=== PATIENT | female | born 1950 | race Caucasian/White ===

== ENCOUNTER 2017-06-09 11:44 | Inpatient (IN) | payer MEDICARE, MEDICAID ==
[~2017-06-09] VITALS: Ht 180.3 cm; Wt 123.0 kg
[~2017-06-09 11:44] MED LIST: CLAR500T PO; HYDROCODONE-ACETAMIN 10-325 MG; MULT-1085 PO; NORCO10T PO
[2017-06-09 12:16] LABS: BASOPHILS % (AUTO) 0.2 % (0-1); EOSINOPHILS # (AUTO) 0.1 X10'3 (0-0.9); EOSINOPHILS % (AUTO) 0.9 % (0-6); HEMATOCRIT 39.8 % (35.0-45.0); HEMOGLOBIN 13.2 g/dl (12.0-16.0); LYMPHOCYTES # (AUTO) 1.4 X10'3 (1.1-4.8); LYMPHOCYTES % (AUTO) 15.3 % (21-51); MEAN CORPUSCULAR HEMOGLOBIN 27.8 PG (27.0-31.0); MEAN CORPUSCULAR HGB CONC 33.1 % (33.0-36.5); MEAN PLATELET VOLUME 9.5 FL (7.4-10.4); MONOCYTES # (AUTO) 0.7 X10'3 (0-0.9); MONOCYTES % (AUTO) 7.7 % (2-12); NEUTROPHILS # (AUTO) 6.9 X10'3 (1.8-7.7); NEUTROPHILS % (AUTO) 75.9 % (42-75); PLATELET COUNT 135 X10'3 (140-440); RED BLOOD COUNT 4.74 X10'6 (4.20-5.60); RED CELL DISTRIBUTION WIDTH 16.2 % (11.5-14.5); WHITE BLOOD COUNT 9.1 X10'3 (4.5-11.0)
[2017-06-09 12:27] LABS: INR 1.1 INR; PARTIAL THROMBOPLASTIN TIME 26 SECONDS (22-32); PROTHROMBIN TIME 11.1 SECONDS (9.0-12.0)
[2017-06-09 12:33] LABS: ALANINE AMINOTRANSFERASE 18 U/L (12-78); ALBUMIN 3.8 G/DL (3.4-5.0); ALKALINE PHOSPHATASE 61 IU/L (46-116); ANION GAP 11 (8-16); ASPARTATE AMINO TRANSFERASE 18 U/L (10-37); BILIRUBIN,TOTAL 0.8 MG/DL (0.1-1.0); BLOOD UREA NITROGEN 18 MG/DL (7-18); BUN/CREATININE RATIO 26.5 (6.6-38.0); CALCIUM 9.3 MG/DL (8.5-10.1); CHLORIDE 103 MMOL/L (99-107); CREATININE 0.68 MG/DL (0.40-0.90); GLUCOSE 106 MG/DL (70-104); POTASSIUM 3.7 MMOL/L (3.5-5.1); SODIUM 141 MMOL/L (135-145); TOTAL CARBON DIOXIDE 27.4 MMOL/L (24-32); TOTAL PROTEIN 7.6 G/DL (6.4-8.2); eGFR 86 ML/MIN
[2017-06-09] MEDS ORDERED: normal saline 1000ML IV soln IVB ONE (12:35)
[2017-06-09] MEDS ORDERED: verapamil 2.5 mg/ml inj IV ONE (12:35)
[2017-06-09] MEDS ORDERED: metoprolol tartrate 1mg/ml inj IV ONE (12:50)
[2017-06-09] MEDS: diltiazem-NS 100mg/100ml 100 ML IV SCH ×2 (14:11→22:00)
[2017-06-09] MEDS ORDERED: CLOT30CR TOP (15:22)
[2017-06-09] MEDS ORDERED: diltiazem-NS 100mg/100ml 100 ML IV SCH (15:40)
[2017-06-09] MEDS ORDERED: acetaminophen 325mg tablet PO PRN (15:40)
[2017-06-09] MEDS ORDERED: ondansetron/PF 4mg/2ml inj IV PRN (15:40)
[2017-06-09] MEDS ORDERED: magnesium hydroxide 30ml (MOM) UD suspension PO PRN (15:40)
[2017-06-09] MEDS ORDERED: mag hydrox/Alum hydrox/simeth 30ml oral suspension PO PRN (15:40)
[2017-06-09] MEDS: normal saline 1000ml 1,000 ML IV SCH (15:50)
[2017-06-09] MEDS: HYDROcodone/acetaminophen 10/325mg tab PO PRN (20:02)
[2017-06-09] MEDS ORDERED: enoxaparin 60mg/0.6ml syringe SUBCUT ONE (20:10)
[2017-06-09 21:00] VITALS: BP 159/131
[2017-06-09 23:00] VITALS: BP 126/107
[2017-06-10] VITALS (14 sets, daily range): BP systolic 113–160; BP diastolic 82–108
[2017-06-10] MEDS: normal saline 1000ml 1,000 ML IV SCH ×3 (01:40→16:05)
[2017-06-10] MEDS: HYDROcodone/acetaminophen 10/325mg tab PO PRN ×2 (05:10→16:20)
[2017-06-10 05:32] LABS: BASOPHILS % (AUTO) 0.2 % (0-1); EOSINOPHILS # (AUTO) 0.1 X10'3 (0-0.9); EOSINOPHILS % (AUTO) 2.2 % (0-6); HEMATOCRIT 36.8 % (35.0-45.0); HEMOGLOBIN 12.2 g/dl (12.0-16.0); LYMPHOCYTES # (AUTO) 1.4 X10'3 (1.1-4.8); LYMPHOCYTES % (AUTO) 23.7 % (21-51); MEAN CORPUSCULAR HEMOGLOBIN 27.7 PG (27.0-31.0); MEAN CORPUSCULAR HGB CONC 33.3 % (33.0-36.5); MEAN CORPUSCULAR VOLUME 83.3 FL (78-98); MEAN PLATELET VOLUME 9.4 FL (7.4-10.4); MONOCYTES # (AUTO) 0.6 X10'3 (0-0.9); MONOCYTES % (AUTO) 10.2 % (2-12); NEUTROPHILS # (AUTO) 3.9 X10'3 (1.8-7.7); NEUTROPHILS % (AUTO) 63.7 % (42-75); PLATELET COUNT 131 X10'3 (140-440); RED BLOOD COUNT 4.41 X10'6 (4.20-5.60); WHITE BLOOD COUNT 6.1 X10'3 (4.5-11.0)
[2017-06-10 06:29] LABS: ALBUMIN 3.3 G/DL (3.4-5.0); ANION GAP 10 (8-16); BLOOD UREA NITROGEN 18 MG/DL (7-18); BUN/CREATININE RATIO 31.6 (6.6-38.0); CALCIUM 8.8 MG/DL (8.5-10.1); CHLORIDE 104 MMOL/L (99-107); CREATININE 0.57 MG/DL (0.40-0.90); GLUCOSE 103 MG/DL (70-104); POTASSIUM 3.4 MMOL/L (3.5-5.1); SODIUM 141 MMOL/L (135-145); TOTAL CARBON DIOXIDE 26.9 MMOL/L (24-32); eGFR > 90 ML/MIN
[2017-06-10] MEDS: diltiazem-NS 100mg/100ml 100 ML IV SCH ×4 (08:48→22:24)
[2017-06-10] MEDS ORDERED: magnesium 2GM in 50ml NS 50 ML IV PRN (10:45)
[2017-06-10] MEDS ORDERED: potassium Cl 40MEQ/NS 500ml 500 ML IV PRN ×2 (10:45)
[2017-06-10] MEDS ORDERED: magnesium 4gm in 100ml NS 100 ML IV PRN (10:45)
[2017-06-10] MEDS ORDERED: magnesium Cl slow-release 64mg tablet PO PRN (10:45)
[2017-06-10] MEDS ORDERED: potassium Cl 20 mEq SR tablet PO PRN (10:45)
[2017-06-10] MEDS ORDERED: iohexol 300mg/ml 100ml inj. ONE (13:21)
[2017-06-10] MEDS: enoxaparin 60mg/0.6ml syringe SUBCUT SCH ×2 (13:49→20:00)
[2017-06-10] MEDS: diltiazem 30mg tablet PO SCH ×2 (14:39→20:23)
[2017-06-10] MEDS: potassium Cl 20 mEq SR tablet PO PRN ×2 (14:44→20:23)
[2017-06-11] VITALS (7 sets, daily range): BP systolic 114–140; BP diastolic 72–98
[2017-06-11] MEDS: HYDROcodone/acetaminophen 10/325mg tab PO PRN ×3 (00:41→17:13)
[2017-06-11] MEDS: diltiazem 30mg tablet PO SCH ×4 (02:12→20:23)
[2017-06-11] MEDS: normal saline 1000ml 1,000 ML IV SCH (02:13)
[2017-06-11 05:42] LABS: BASOPHILS % (AUTO) 0.4 % (0-1); EOSINOPHILS # (AUTO) 0.2 X10'3 (0-0.9); EOSINOPHILS % (AUTO) 3.3 % (0-6); HEMATOCRIT 36.4 % (35.0-45.0); HEMOGLOBIN 12.2 g/dl (12.0-16.0); LYMPHOCYTES # (AUTO) 1.3 X10'3 (1.1-4.8); LYMPHOCYTES % (AUTO) 22.2 % (21-51); MEAN CORPUSCULAR HEMOGLOBIN 27.8 PG (27.0-31.0); MEAN CORPUSCULAR HGB CONC 33.5 % (33.0-36.5); MEAN CORPUSCULAR VOLUME 82.9 FL (78-98); MEAN PLATELET VOLUME 9.1 FL (7.4-10.4); MONOCYTES # (AUTO) 0.6 X10'3 (0-0.9); MONOCYTES % (AUTO) 11.4 % (2-12); NEUTROPHILS # (AUTO) 3.6 X10'3 (1.8-7.7); NEUTROPHILS % (AUTO) 62.7 % (42-75); PLATELET COUNT 147 X10'3 (140-440); RED BLOOD COUNT 4.39 X10'6 (4.20-5.60); RED CELL DISTRIBUTION WIDTH 16.1 % (11.5-14.5); WHITE BLOOD COUNT 5.7 X10'3 (4.5-11.0)
[2017-06-11 05:46] LABS: ALBUMIN 3.3 G/DL (3.4-5.0); ANION GAP 9 (8-16); BLOOD UREA NITROGEN 20 MG/DL (7-18); BUN/CREATININE RATIO 35.1 (6.6-38.0); CHLORIDE 106 MMOL/L (99-107); CREATININE 0.57 MG/DL (0.40-0.90); GLUCOSE 105 MG/DL (70-104); MAGNESIUM 1.7 MG/DL (1.5-2.4); SODIUM 143 MMOL/L (135-145); TOTAL CARBON DIOXIDE 28.4 MMOL/L (24-32); eGFR > 90 ML/MIN
[2017-06-11] MEDS: enoxaparin 60mg/0.6ml syringe SUBCUT SCH ×2 (07:48→20:00)
[2017-06-11] MEDS ORDERED: diltiazem 30mg tablet PO ONE (09:55)
[2017-06-11] MEDS ORDERED: potassium Cl 20 mEq SR tablet PO SCH (10:25)
[2017-06-11] MEDS ORDERED: furosemide 20 MG/2 ML vial IV SCH (10:25)
[2017-06-11] MEDS ORDERED: furosemide 40mg/4ml inj ONE (10:43)
[2017-06-11] MEDS: potassium Cl 20 mEq SR tablet PO SCH ×2 (10:51→17:13)
[2017-06-11] MEDS ORDERED: ipratropium/albuterol 3ml nebule NEB PRN (11:05)
[2017-06-11] MEDS: ipratropium/albuterol 3ml nebule NEB SCH ×3 (14:49→23:32)
[2017-06-11] MEDS: furosemide 40mg/4ml inj IV SCH (20:22)
[2017-06-12] MEDS: diltiazem 30mg tablet PO SCH ×4 (01:49→20:46)
[2017-06-12] MEDS: HYDROcodone/acetaminophen 10/325mg tab PO PRN ×3 (01:50→20:47)
[2017-06-12 03:00] VITALS: BP 120/91
[2017-06-12] MEDS: ipratropium/albuterol 3ml nebule NEB SCH ×6 (03:16→23:00)
[2017-06-12 06:00] VITALS: BP 129/96
[2017-06-12 06:35] LABS: MAGNESIUM 1.6 MG/DL (1.5-2.4); POTASSIUM 3.4 MMOL/L (3.5-5.1)
[2017-06-12] MEDS: potassium Cl 20 mEq SR tablet PO PRN ×3 (07:19→20:51)
[2017-06-12] MEDS: potassium Cl 20 mEq SR tablet PO SCH ×2 (07:19→16:38)
[2017-06-12] MEDS: furosemide 40mg/4ml inj IV SCH ×2 (07:20→20:46)
[2017-06-12] MEDS: enoxaparin 60mg/0.6ml syringe SUBCUT SCH ×2 (08:00→20:00)
[2017-06-12 11:00] VITALS: BP 148/95
[2017-06-12 15:00] VITALS: BP 126/103
[2017-06-12 19:00] VITALS: BP 141/92
[2017-06-12 23:00] VITALS: BP 127/84
[2017-06-13] MEDS: diltiazem 30mg tablet PO SCH ×3 (02:00→14:48)
[2017-06-13 03:00] VITALS: BP 122/89
[2017-06-13] MEDS: ipratropium/albuterol 3ml nebule NEB SCH ×2 (03:00→07:00)
[2017-06-13 05:32] LABS: BASOPHILS % (AUTO) 0.3 % (0-1); EOSINOPHILS # (AUTO) 0.2 X10'3 (0-0.9); EOSINOPHILS % (AUTO) 3.3 % (0-6); HEMATOCRIT 36.6 % (35.0-45.0); HEMOGLOBIN 12.3 g/dl (12.0-16.0); LYMPHOCYTES # (AUTO) 1.3 X10'3 (1.1-4.8); LYMPHOCYTES % (AUTO) 21.6 % (21-51); MEAN CORPUSCULAR HEMOGLOBIN 27.9 PG (27.0-31.0); MEAN CORPUSCULAR HGB CONC 33.7 % (33.0-36.5); MEAN CORPUSCULAR VOLUME 82.7 FL (78-98); MEAN PLATELET VOLUME 8.4 FL (7.4-10.4); MONOCYTES # (AUTO) 0.6 X10'3 (0-0.9); MONOCYTES % (AUTO) 10.1 % (2-12); NEUTROPHILS # (AUTO) 3.9 X10'3 (1.8-7.7); NEUTROPHILS % (AUTO) 64.7 % (42-75); PLATELET COUNT 156 X10'3 (140-440); RED BLOOD COUNT 4.43 X10'6 (4.20-5.60); RED CELL DISTRIBUTION WIDTH 16.5 % (11.5-14.5)
[2017-06-13 05:45] LABS: ALBUMIN 3.4 G/DL (3.4-5.0); ANION GAP 8 (8-16); BLOOD UREA NITROGEN 13 MG/DL (7-18); BUN/CREATININE RATIO 21.7 (6.6-38.0); CALCIUM 9.4 MG/DL (8.5-10.1); CHLORIDE 100 MMOL/L (99-107); GLUCOSE 105 MG/DL (70-104); MAGNESIUM 1.7 MG/DL (1.5-2.4); POTASSIUM 3.8 MMOL/L (3.5-5.1); SODIUM 142 MMOL/L (135-145); TOTAL CARBON DIOXIDE 34.2 MMOL/L (24-32); eGFR > 90 ML/MIN
[2017-06-13 06:35] VITALS: BP 143/98
[2017-06-13] MEDS: HYDROcodone/acetaminophen 10/325mg tab PO PRN ×2 (07:01→17:28)
[2017-06-13] MEDS: enoxaparin 60mg/0.6ml syringe SUBCUT SCH (08:00)
[2017-06-13] MEDS: potassium Cl 20 mEq SR tablet PO SCH (09:19)
[2017-06-13] MEDS: furosemide 40mg/4ml inj IV SCH (09:20)
[2017-06-13 11:00] VITALS: BP 119/84
[2017-06-13 15:00] VITALS: BP 137/90
[2017-06-13] MEDS ORDERED: DILT30TA5 PO (17:56)
== END 2017-06-13 18:00 | disposition home or self-care (01) | DRG 871 ==
LOC: ER 11:45 → ED HOLD 15:40 → PCU 3S 20:30 → CMPBEDREQ 21:17
PROVIDERS: ADMIT Internal Medicine; ATTEND Legal Medicine
DX: A41.9 Sepsis, unspecified organism (principal); J96.02 Acute respiratory failure with hypercapnia; I50.23 Acute on chronic systolic (congestive) heart failure; I85.10 Secondary esophageal varices without bleeding; I48.91 Unspecified atrial fibrillation; I08.3 Combined rheumatic disorders of mitral, aortic and tricuspid valves; J45.901 Unspecified asthma with (acute) exacerbation; I11.0 Hypertensive heart disease with heart failure; K74.60 Unspecified cirrhosis of liver; B18.2 Chronic viral hepatitis C; B34.9 Viral infection, unspecified; I25.10 Atherosclerotic heart disease of native coronary artery without angina pectoris; M19.90 Unspecified osteoarthritis, unspecified site; F12.90 Cannabis use, unspecified, uncomplicated; Z60.2 Problems related to living alone; Z96.612 Presence of left artificial shoulder joint; Z96.653 Presence of artificial knee joint, bilateral; Z90.710 Acquired absence of both cervix and uterus; Z88.8 Allergy status to other drugs, medicaments and biological substances; Z87.891 Personal history of nicotine dependence; Z82.49 Family history of ischemic heart disease and other diseases of the circulatory system
CPT/HCPCS: 36415; 71045; 71260; 80048; 80053; 83735; 83880; 84132; 84484; 85025; 85610; 85730; 86738; 87070; 87502; 87503; 93005; 93306; 94640; 94760; 96361; 96374; 96375; 99291; A6212; J1650; J1940; J3490; J7030; Q9967

== ENCOUNTER 2017-07-03 10:36 | Emergency (ER) | payer MEDICARE, MEDICAID ==
[~2017-07-03] VITALS: Ht 180.3 cm; Wt 123.2 kg
[~2017-07-03 10:36] MED LIST changes: -CLAR500T PO; +CLOT30CR TOP; +DILT30TA5 PO; -HYDROCODONE-ACETAMIN 10-325 MG; -MULT-1085 PO
[2017-07-03 11:04] LABS: BASOPHILS % (AUTO) 0.4 % (0-1); EOSINOPHILS # (AUTO) 0.2 X10'3 (0-0.9); HEMATOCRIT 41.1 % (35.0-45.0); HEMOGLOBIN 13.7 g/dl (12.0-16.0); LYMPHOCYTES # (AUTO) 1.6 X10'3 (1.1-4.8); LYMPHOCYTES % (AUTO) 21.5 % (21-51); MEAN CORPUSCULAR HEMOGLOBIN 27.5 PG (27.0-31.0); MEAN CORPUSCULAR HGB CONC 33.3 % (33.0-36.5); MEAN CORPUSCULAR VOLUME 82.6 FL (78-98); MEAN PLATELET VOLUME 8.4 FL (7.4-10.4); MONOCYTES # (AUTO) 0.7 X10'3 (0-0.9); MONOCYTES % (AUTO) 9.2 % (2-12); NEUTROPHILS # (AUTO) 4.8 X10'3 (1.8-7.7); NEUTROPHILS % (AUTO) 65.9 % (42-75); PLATELET COUNT 159 X10'3 (140-440); RED BLOOD COUNT 4.97 X10'6 (4.20-5.60); RED CELL DISTRIBUTION WIDTH 16.6 % (11.5-14.5); WHITE BLOOD COUNT 7.4 X10'3 (4.5-11.0)
[2017-07-03 11:14] LABS: INR 1.3 INR; PARTIAL THROMBOPLASTIN TIME 41 SECONDS (22-32); PROTHROMBIN TIME 13.8 SECONDS (9.0-12.0)
[2017-07-03 11:19] LABS: ALANINE AMINOTRANSFERASE 20 U/L (12-78); ALBUMIN 3.8 G/DL (3.4-5.0); ALKALINE PHOSPHATASE 64 IU/L (46-116); ANION GAP 10 (8-16); ASPARTATE AMINO TRANSFERASE 16 U/L (10-37); BILIRUBIN,TOTAL 0.6 MG/DL (0.1-1.0); BLOOD UREA NITROGEN 25 MG/DL (7-18); BUN/CREATININE RATIO 31.3 (6.6-38.0); CALCIUM 9.2 MG/DL (8.5-10.1); CHLORIDE 102 MMOL/L (99-107); GLUCOSE 127 MG/DL (70-104); POTASSIUM 3.9 MMOL/L (3.5-5.1); SODIUM 140 MMOL/L (135-145); TOTAL CARBON DIOXIDE 28.4 MMOL/L (24-32); TOTAL PROTEIN 7.5 G/DL (6.4-8.2); eGFR 71 ML/MIN
[2017-07-03] MEDS ORDERED: diltiazem 30mg tablet PO ONE ×2 (17:10→18:25)
[2017-07-03] MEDS ORDERED: furosemide 20MG tablet PO ONE (17:30)
[2017-07-03] MEDS ORDERED: DILT240C90 PO (18:02)
[2017-07-03] MEDS ORDERED: DILT360C29 PO (18:23)
[2017-07-03 19:56] VITALS: BP 147/110
== END 2017-07-03 19:57 | disposition home or self-care (01) ==
LOC: ER 10:37
DX: I48.91 Unspecified atrial fibrillation (principal); I10 Essential (primary) hypertension; F12.10 Cannabis abuse, uncomplicated; Z60.2 Problems related to living alone; Z98.890 Other specified postprocedural states; Z90.710 Acquired absence of both cervix and uterus; Z79.899 Other long term (current) drug therapy
CPT/HCPCS: 36415; 71045; 80053; 83880; 84484; 85025; 85610; 85730; 93005; 99285

== ENCOUNTER 2017-08-22 21:08 | Emergency (ER) | payer MEDICARE, MEDICAID ==
[~2017-08-22] VITALS: Ht 180.3 cm; Wt 122.0 kg
[~2017-08-22 21:08] MED LIST changes: +BACDS PO; +DILT240C90 PO; +DILT360C29 PO
[2017-08-22 21:12] VITALS: BP 152/93
[2017-08-22 21:46] LABS: CLARITY,URINE SLIGHTLY CLOUDY (Clear); COLOR,URINE YELLOW (Yellow); GLUCOSE, URINE NEGATIVE (Neg); KETONES,URINE NEGATIVE (Neg); LEUKOCYTE ESTERASE ,URINE MODERATE (Neg); NITRITES, URINE NEGATIVE (Neg); OCCULT BLOOD,URINE MODERATE (Neg); PROTEIN,URINE TRACE mg/dl (Neg); UROBILINOGEN,URINE 0.2 E.U/dL (0.2-1.0)
[2017-08-22] MEDS ORDERED: PHEN-716 PO (21:49)
[2017-08-22] MEDS ORDERED: CIPR-230 PO (21:49)
[2017-08-22] MEDS ORDERED: ciprofloxacin 250mg tablet PO ONE (21:50)
[2017-08-22] MEDS ORDERED: phenazopyridine 100mg tablet PO ONE (21:50)
[2017-08-22 21:54] LABS: UA COLLECTION TYPE CLN CATCH MIDSTREAM
[2017-08-22 21:56] LABS: BACTERIA,URINE 1+ /HPF (Neg); MUCUS STRANDS NONE SEEN /LPF (Neg); SQUAMOUS EPITHELIAL CELL,UR FEW /LPF (FEW); WBC CLUMPS,URINE MODERATE /HPF (NEGATIVE); WBC,URINE 50-100 /HPF (0-4)
== END 2017-08-22 22:14 | disposition home or self-care (01) ==
LOC: ER 21:09
DX: N39.0 Urinary tract infection, site not specified (principal); I48.91 Unspecified atrial fibrillation; I10 Essential (primary) hypertension; F12.90 Cannabis use, unspecified, uncomplicated; M86.60 Other chronic osteomyelitis, unspecified site; Z90.710 Acquired absence of both cervix and uterus; Z98.890 Other specified postprocedural states; Z60.2 Problems related to living alone; Z79.899 Other long term (current) drug therapy
CPT/HCPCS: 81001; 87077; 87088; 87186; 99284

== ENCOUNTER 2017-08-25 09:42 | Day surgery (SDC) | payer MEDICARE, MEDICAID ==
[2017-08-24 12:39] LABS: BASOPHILS % (AUTO) 0.5 % (0-1); EOSINOPHILS # (AUTO) 0.1 X10'3 (0-0.9); EOSINOPHILS % (AUTO) 1.8 % (0-6); HEMATOCRIT 40.3 % (35.0-45.0); HEMOGLOBIN 13.6 g/dl (12.0-16.0); LYMPHOCYTES # (AUTO) 1.4 X10'3 (1.1-4.8); LYMPHOCYTES % (AUTO) 23.3 % (21-51); MEAN CORPUSCULAR HEMOGLOBIN 27.9 PG (27.0-31.0); MEAN CORPUSCULAR HGB CONC 33.6 % (33.0-36.5); MEAN CORPUSCULAR VOLUME 82.9 FL (78-98); MEAN PLATELET VOLUME 7.7 FL (7.4-10.4); MONOCYTES # (AUTO) 0.5 X10'3 (0-0.9); MONOCYTES % (AUTO) 8.7 % (2-12); NEUTROPHILS # (AUTO) 4.1 X10'3 (1.8-7.7); NEUTROPHILS % (AUTO) 65.7 % (42-75); PLATELET COUNT 180 X10'3 (140-440); RED BLOOD COUNT 4.86 X10'6 (4.20-5.60); RED CELL DISTRIBUTION WIDTH 15.8 % (11.5-14.5); WHITE BLOOD COUNT 6.2 X10'3 (4.5-11.0)
[2017-08-24 12:52] LABS: INR 1.3 INR; PARTIAL THROMBOPLASTIN TIME 41 SECONDS (22-32); PROTHROMBIN TIME 13.7 SECONDS (9.0-12.0)
[2017-08-24 12:55] LABS: ALBUMIN 3.5 G/DL (3.4-5.0); ANION GAP 6 (8-16); BLOOD UREA NITROGEN 10 MG/DL (7-18); BUN/CREATININE RATIO 13.7 (6.6-38.0); CALCIUM 8.7 MG/DL (8.5-10.1); CHLORIDE 101 MMOL/L (99-107); CREATININE 0.73 MG/DL (0.40-0.90); GLUCOSE 104 MG/DL (70-104); POTASSIUM 3.7 MMOL/L (3.5-5.1); SODIUM 140 MMOL/L (135-145); TOTAL CARBON DIOXIDE 33.2 MMOL/L (24-32); eGFR 79 ML/MIN
[2017-08-25] VITALS (12 sets, daily range): BP systolic 114–145; BP diastolic 77–120
[~2017-08-25] VITALS: Ht 180.3 cm; Wt 125.4 kg
[~2017-08-25 09:42] MED LIST changes: -BACDS PO; +CIPR-230 PO; +PHEN-716 PO
[2017-08-25] MEDS ORDERED: normal saline 1000ml 1,000 ML IV SCH (10:15)
[2017-08-25] MEDS ORDERED: fentaNYL/PF 50MCG/1 ML 2ML syringe IV ONE (10:15)
[2017-08-25] MEDS ORDERED: MIDAZolam 5mg/ml 2ml vial IV ONE (10:15)
[2017-08-25] MEDS ORDERED: LISI2.5T2 PO (10:37)
[2017-08-25] MEDS ORDERED: DILT240C54 PO (10:37)
[2017-08-25] MEDS ORDERED: POTA10TA19 PO (10:37)
[2017-08-25] MEDS ORDERED: FURO40TA4 PO (10:37)
[2017-08-25] MEDS ORDERED: DABI150C PO (10:37)
[2017-08-25] MEDS ORDERED: CIPR-230 PO (10:38)
== END 2017-08-25 14:00 | disposition home or self-care (01) ==
LOC: SSTAY O 09:42
PROVIDERS: ATTEND Internal Medicine Interventional Cardiology
DX: I48.91 Unspecified atrial fibrillation (principal); I11.0 Hypertensive heart disease with heart failure; I50.23 Acute on chronic systolic (congestive) heart failure; I85.00 Esophageal varices without bleeding; F17.211 Nicotine dependence, cigarettes, in remission; B18.2 Chronic viral hepatitis C; M19.90 Unspecified osteoarthritis, unspecified site; F32.9 Major depressive disorder, single episode, unspecified; F12.90 Cannabis use, unspecified, uncomplicated; Z96.653 Presence of artificial knee joint, bilateral; Z96.612 Presence of left artificial shoulder joint; Z85.828 Personal history of other malignant neoplasm of skin; Z79.891 Long term (current) use of opiate analgesic; Z79.2 Long term (current) use of antibiotics; Z90.710 Acquired absence of both cervix and uterus; Z79.899 Other long term (current) drug therapy; Z98.890 Other specified postprocedural states; Z88.8 Allergy status to other drugs, medicaments and biological substances
CPT/HCPCS: 36415; 80048; 85025; 85610; 85730; 92960; 93005; J2250; J3010; J7030; A4620

== ENCOUNTER 2017-08-29 18:59 | Emergency (ER) | payer MEDICARE, MEDICAID ==
[~2017-08-29] VITALS: Ht 180.3 cm; Wt 127.9 kg
[~2017-08-29 18:59] MED LIST changes: -CLOT30CR TOP; +DABI150C PO; +DILT240C54 PO; -DILT240C90 PO; -DILT30TA5 PO; -DILT360C29 PO; +FURO40TA4 PO; +LISI2.5T2 PO; -PHEN-716 PO; +POTA10TA19 PO
[2017-08-29 19:40] LABS: CLARITY,URINE SLIGHTLY CLOUDY (Clear); COLOR,URINE YELLOW (Yellow); GLUCOSE, URINE NEGATIVE (Neg); KETONES,URINE NEGATIVE (Neg); LEUKOCYTE ESTERASE ,URINE MODERATE (Neg); NITRITES, URINE NEGATIVE (Neg); OCCULT BLOOD,URINE LARGE (Neg); PROTEIN,URINE TRACE mg/dl (Neg); UROBILINOGEN,URINE 0.2 E.U/dL (0.2-1.0)
[2017-08-29 19:48] LABS: UA COLLECTION TYPE CLN CATCH MIDSTREAM
[2017-08-29 19:49] LABS: BACTERIA,URINE FEW /HPF (Neg); RBC,URINE 20-50 /HPF (0-2); SQUAMOUS EPITHELIAL CELL,UR FEW /LPF (FEW); WBC,URINE 20-30 /HPF (0-4)
[2017-08-29] MEDS ORDERED: NITR100C PO (21:10)
[2017-08-29 21:29] VITALS: BP 141/82
== END 2017-08-29 21:32 | disposition home or self-care (01) ==
LOC: ER 18:59
DX: N39.0 Urinary tract infection, site not specified (principal); R31.9 Hematuria, unspecified; I48.91 Unspecified atrial fibrillation; I10 Essential (primary) hypertension; F12.90 Cannabis use, unspecified, uncomplicated; Z90.710 Acquired absence of both cervix and uterus; Z60.2 Problems related to living alone; Z98.890 Other specified postprocedural states; Z79.2 Long term (current) use of antibiotics; Z79.899 Other long term (current) drug therapy
CPT/HCPCS: 81001; 87088; 99284

== ENCOUNTER 2017-12-21 07:30 | Inpatient (IN) | payer MEDICARE, MEDICAID ==
[~2017-12-21] VITALS: Ht 182.9 cm; Wt 124.7 kg
[~2017-12-21 07:30] MED LIST changes: -CIPR-230 PO
[2017-12-22 15:26] LABS: BASOPHILS % (AUTO) 0.3 % (0-1); EOSINOPHILS # (AUTO) 0.2 X10'3 (0-0.9); EOSINOPHILS % (AUTO) 2.5 % (0-6); LYMPHOCYTES # (AUTO) 1.3 X10'3 (1.1-4.8); LYMPHOCYTES % (AUTO) 20.3 % (21-51); MEAN CORPUSCULAR HEMOGLOBIN 27.4 PG (27.0-31.0); MEAN CORPUSCULAR HGB CONC 32.7 % (33.0-36.5); MEAN CORPUSCULAR VOLUME 83.8 FL (78-98); MEAN PLATELET VOLUME 8.1 FL (7.4-10.4); MONOCYTES # (AUTO) 0.6 X10'3 (0-0.9); MONOCYTES % (AUTO) 9.3 % (2-12); NEUTROPHILS # (AUTO) 4.3 X10'3 (1.8-7.7); NEUTROPHILS % (AUTO) 67.6 % (42-75); PRE OP HEMATOCRIT 41.1 % (35.0-45.0); PRE OP HEMOGLOBIN 13.4 g/dL (12.0-16.0); PRE OP PLATELET COUNT 146 X10'3 (140-440); RED CELL DISTRIBUTION WIDTH 16.4 % (11.5-14.5)
[2017-12-22 15:43] LABS: PRE OP INR 1.2 INR; PRE OP PROTIME 12.3 SECONDS (9.0-12.0)
[2017-12-22 15:47] LABS: ALBUMIN 3.8 G/DL (3.4-5.0); ALBUMIN/GLOBULIN RATIO 1.1 (1.1-1.5); ALKALINE PHOSPHATASE 72 IU/L (46-116); BLOOD UREA NITROGEN 18 MG/DL (7-18); BUN/CREATININE RATIO 24.7 (6.6-38.0); CALCIUM 9.1 MG/DL (8.5-10.1); CHLORIDE 101 MMOL/L (99-107); CREATININE 0.73 MG/DL (0.40-0.90); PRE OP ALT 15 U/L (30-65); PRE OP ANION GAP 5 (8-16); PRE OP AST 14 U/L (10-37); PRE OP BILIRUB, TOTAL 0.5 MG/DL (0.0-1.0); PRE OP GLUCOSE 92 MG/DL (70-104); PRE OP POTASSIUM 3.7 MMOL/L (3.4-5.1); PRE OP SODIUM 140 MMOL/L (135-145); TOTAL CARBON DIOXIDE 33.8 MMOL/L (24-32); TOTAL PROTEIN 7.4 G/DL (6.4-8.2); eGFR 79 ML/MIN
[2017-12-31] VITALS (20 sets, daily range): BP systolic 114–146; BP diastolic 49–99
[2017-12-31] MEDS ORDERED: ringers solution, lacted 1,000 ML IV SCH ×2 (05:00→08:45)
[2017-12-31] MEDS ORDERED: vancomycin inj 1,500 MG in normal saline 300ml IV soln IV ONE (05:30)
[2017-12-31] MEDS ORDERED: famotidine 20mg tablet PO ONE (05:30)
[2017-12-31] MEDS ORDERED: ceFAZolin inj. 3,000 MG in normal saline 100ml IV soln 100 ML IV ONE (05:30)
[2017-12-31] MEDS ORDERED: LIDOcaine 1% (10mg/ml) 2ml vial ONE (07:00)
[2017-12-31] MEDS ORDERED: labetalol 20mg/4ml (5mg/ml) syringe IV PRN (08:45)
[2017-12-31] MEDS ORDERED: ondansetron/PF 4mg/2ml inj IV PRN ×2 (08:45→12:25)
[2017-12-31] MEDS ORDERED: fentaNYL/PF 50MCG/1 ML 2ML syringe IV PRN (08:45)
[2017-12-31] MEDS ORDERED: sevoflurane 250ml liquid IH ONE (08:45)
[2017-12-31] MEDS ORDERED: morphine 4 MG/ML inj SYRINge IV PRN (08:45)
[2017-12-31] MEDS ORDERED: hydrALAZINE 20mg/ml inj. IV PRN (08:45)
[2017-12-31] MEDS ORDERED: midazolam 2 mg/2 ml injection ONE (08:50)
[2017-12-31] MEDS ORDERED: fentaNYL /PF 50mcg/ml 5ml ampule ONE ×2 (08:51)
[2017-12-31] MEDS ORDERED: tranexamic acid inj. 1,000 MG in normal saline 100ml IV soln 90 ML IV ONE (10:05)
[2017-12-31] MEDS ORDERED: LIDOcaine 2% (20mg/ml) 5ml vial ONE (10:06)
[2017-12-31] MEDS ORDERED: propofol inj 20 ML IV ONE (10:06)
[2017-12-31] MEDS ORDERED: ondansetron/PF 4mg/2ml inj ONE (10:06)
[2017-12-31] MEDS ORDERED: dexamethasone sod phosphate 4mg/ml inj. ONE (10:06)
[2017-12-31] MEDS ORDERED: Thrombin (Bovine) 5,000 unit vial TP ONE (10:14)
[2017-12-31] MEDS ORDERED: gelatin sponge, absorbable (Gelfoam 100) sponge TP ONE (10:14)
[2017-12-31] MEDS ORDERED: BUPIVAcaine/PF 2.5mg/ml (0.25%) 10ml vial ONE (10:14)
[2017-12-31] MEDS ORDERED: labetalol 5mg/ml 20ml inj. IV ONE (10:27)
[2017-12-31] MEDS ORDERED: non-formulary drug (Potassium Chloride (Klor-Con) 1 TAB) PO PRN (12:25)
[2017-12-31] MEDS: morphine 4 MG/ML inj SYRINge IV PRN ×2 (12:25→12:31)
[2017-12-31] MEDS ORDERED: bisacodyl 10mg suppository rectal RC PRN (12:25)
[2017-12-31] MEDS ORDERED: furosemide 40mg tablet PO PRN (12:25)
[2017-12-31] MEDS ORDERED: magnesium hydroxide 30ml (MOM) UD suspension PO PRN (12:25)
[2017-12-31] MEDS ORDERED: diphenhydrAMINE 25mg capsule PO PRN ×2 (12:25)
[2017-12-31] MEDS ORDERED: acetaminophen 325mg tablet PO PRN (12:25)
[2017-12-31] MEDS ORDERED: potassium chloride 10mEq ER tablet PO PRN (12:30)
[2017-12-31] MEDS: fentaNYL/PF 50MCG/1 ML 2ML syringe IV PRN ×2 (12:44→12:58)
[2017-12-31] MEDS: potassium Cl 20mEq in NS 1,000 ML IV SCH (14:23)
[2017-12-31] MEDS: HYDROmorphone 1 mg/ml syringe IV PRN ×2 (15:13→19:39)
[2017-12-31] MEDS: ceFAZolin 1GM/D5W- ADD-VANTAGE 50 ML IV SCH (16:08)
[2017-12-31] MEDS: HYDROcodone/acetaminophen 10/325mg tab PO PRN ×2 (16:20→21:51)
[2017-12-31] MEDS ORDERED: DILTIAZEM HCL PO SCH (20:00)
[2017-12-31] MEDS ORDERED: vancomycin/NS 1 GM ADD-VANTAGE 250 ML IV SCH (20:00)
[2017-12-31] MEDS: sennosides 8.6mg tablet PO SCH (20:23)
[2017-12-31] MEDS: diltiazem CD 120mg capsule (once-daily) PO SCH (21:50)
[2018-01-01] MEDS: potassium Cl 20mEq in NS 1,000 ML IV SCH ×3 (00:49→18:25)
[2018-01-01] MEDS: ceFAZolin 1GM/D5W- ADD-VANTAGE 50 ML IV SCH (00:49)
[2018-01-01 02:40] VITALS: BP 125/85
[2018-01-01] MEDS: HYDROcodone/acetaminophen 10/325mg tab PO PRN ×5 (05:10→22:36)
[2018-01-01 06:00] VITALS: BP 121/90
[2018-01-01 07:34] LABS: BASOPHILS % (AUTO) 0 % (0-1); EOSINOPHILS % (AUTO) 0 % (0-6); HEMATOCRIT 37.7 % (35.0-45.0); HEMOGLOBIN 12.1 g/dl (12.0-16.0); LYMPHOCYTES # (AUTO) 0.5 X10'3 (1.1-4.8); LYMPHOCYTES % (AUTO) 5.5 % (21-51); MEAN CORPUSCULAR HEMOGLOBIN 27.4 PG (27.0-31.0); MEAN CORPUSCULAR HGB CONC 32.2 % (33.0-36.5); MEAN CORPUSCULAR VOLUME 85.3 FL (78-98); MEAN PLATELET VOLUME 8.4 FL (7.4-10.4); MONOCYTES # (AUTO) 0.8 X10'3 (0-0.9); MONOCYTES % (AUTO) 8.7 % (2-12); NEUTROPHILS # (AUTO) 7.9 X10'3 (1.8-7.7); NEUTROPHILS % (AUTO) 85.8 % (42-75); PLATELET COUNT 145 X10'3 (140-440); RED BLOOD COUNT 4.42 X10'6 (4.20-5.60); WHITE BLOOD COUNT 9.2 X10'3 (4.5-11.0)
[2018-01-01 07:46] LABS: ANION GAP 8 (8-16); CHLORIDE 102 MMOL/L (99-107); SODIUM 139 MMOL/L (135-145)
[2018-01-01] MEDS: lisinopril 2.5mg tablet PO SCH (08:00)
[2018-01-01] MEDS: diltiazem CD 120mg capsule (once-daily) PO SCH ×2 (09:34→21:15)
[2018-01-01 10:00] VITALS: BP 119/83
[2018-01-01] MEDS ORDERED: DABI150C PO (16:38)
[2018-01-01 18:00] VITALS: BP 130/71
[2018-01-01] MEDS: sennosides 8.6mg tablet PO SCH (21:00)
[2018-01-01] MEDS: HYDROmorphone 1 mg/ml syringe IV PRN (21:54)
[2018-01-01 22:00] VITALS: BP 136/81
[2018-01-02] MEDS: HYDROcodone/acetaminophen 10/325mg tab PO PRN ×4 (03:41→22:47)
[2018-01-02] MEDS: potassium Cl 20mEq in NS 1,000 ML IV SCH (04:25)
[2018-01-02 06:00] VITALS: BP 118/74
[2018-01-02] MEDS: dabigatran 150mg capsule PO SCH ×2 (07:29→19:15)
[2018-01-02] MEDS: diltiazem CD 120mg capsule (once-daily) PO SCH ×2 (07:29→19:20)
[2018-01-02] MEDS: lisinopril 2.5mg tablet PO SCH (07:40)
[2018-01-02 07:50] LABS: BASOPHILS % (AUTO) 0.4 % (0-1); EOSINOPHILS # (AUTO) 0.1 X10'3 (0-0.9); HEMATOCRIT 36.5 % (35.0-45.0); HEMOGLOBIN 11.7 g/dl (12.0-16.0); LYMPHOCYTES # (AUTO) 1.1 X10'3 (1.1-4.8); LYMPHOCYTES % (AUTO) 12.7 % (21-51); MEAN CORPUSCULAR HEMOGLOBIN 27.4 PG (27.0-31.0); MEAN CORPUSCULAR HGB CONC 32.1 % (33.0-36.5); MEAN CORPUSCULAR VOLUME 85.5 FL (78-98); MEAN PLATELET VOLUME 8.9 FL (7.4-10.4); MONOCYTES # (AUTO) 0.9 X10'3 (0-0.9); MONOCYTES % (AUTO) 10.8 % (2-12); NEUTROPHILS # (AUTO) 6.4 X10'3 (1.8-7.7); NEUTROPHILS % (AUTO) 75.1 % (42-75); PLATELET COUNT 146 X10'3 (140-440); RED BLOOD COUNT 4.27 X10'6 (4.20-5.60); RED CELL DISTRIBUTION WIDTH 16.3 % (11.5-14.5); WHITE BLOOD COUNT 8.6 X10'3 (4.5-11.0)
[2018-01-02 10:00] VITALS: BP 122/74
[2018-01-02 18:00] VITALS: BP 153/92
[2018-01-02] MEDS: sennosides 8.6mg tablet PO SCH (21:00)
[2018-01-02 22:00] VITALS: BP 110/74
[2018-01-03] MEDS: HYDROcodone/acetaminophen 10/325mg tab PO PRN ×4 (05:39→23:34)
[2018-01-03 06:00] VITALS: BP 153/93
[2018-01-03] MEDS: lisinopril 2.5mg tablet PO SCH (08:00)
[2018-01-03] MEDS: diltiazem CD 120mg capsule (once-daily) PO SCH ×2 (08:08→19:18)
[2018-01-03] MEDS: dabigatran 150mg capsule PO SCH ×2 (08:09→19:18)
[2018-01-03 08:24] LABS: BASOPHILS % (AUTO) 0.3 % (0-1); EOSINOPHILS # (AUTO) 0.1 X10'3 (0-0.9); EOSINOPHILS % (AUTO) 1.8 % (0-6); HEMATOCRIT 36.2 % (35.0-45.0); HEMOGLOBIN 11.7 g/dl (12.0-16.0); LYMPHOCYTES # (AUTO) 0.8 X10'3 (1.1-4.8); LYMPHOCYTES % (AUTO) 12.7 % (21-51); MEAN CORPUSCULAR HEMOGLOBIN 27.2 PG (27.0-31.0); MEAN CORPUSCULAR HGB CONC 32.2 % (33.0-36.5); MEAN CORPUSCULAR VOLUME 84.5 FL (78-98); MEAN PLATELET VOLUME 8.9 FL (7.4-10.4); MONOCYTES # (AUTO) 0.9 X10'3 (0-0.9); MONOCYTES % (AUTO) 13.7 % (2-12); NEUTROPHILS # (AUTO) 4.4 X10'3 (1.8-7.7); NEUTROPHILS % (AUTO) 71.5 % (42-75); PLATELET COUNT 126 X10'3 (140-440); RED BLOOD COUNT 4.29 X10'6 (4.20-5.60); RED CELL DISTRIBUTION WIDTH 16.6 % (11.5-14.5); WHITE BLOOD COUNT 6.2 X10'3 (4.5-11.0)
[2018-01-03 10:00] VITALS: BP 119/86
[2018-01-03 18:00] VITALS: BP 131/83
[2018-01-03] MEDS: sennosides 8.6mg tablet PO SCH (21:00)
[2018-01-03 22:00] VITALS: BP 122/78
[2018-01-04] MEDS: HYDROcodone/acetaminophen 10/325mg tab PO PRN (05:18)
[2018-01-04 06:00] VITALS: BP 143/92
[2018-01-04] MEDS: lisinopril 2.5mg tablet PO SCH (08:00)
[2018-01-04] MEDS: dabigatran 150mg capsule PO SCH (08:17)
[2018-01-04] MEDS: diltiazem CD 120mg capsule (once-daily) PO SCH (08:17)
[2018-01-04 10:00] VITALS: BP 127/76
== END 2018-01-04 13:50 | disposition home or self-care (01) | DRG 483 ==
LOC: EDSTATUS 07:30 → PAS IN 12-31 06:12 → EDSTATUS 12-31 12:15 → ORTHO 4S 12-31 13:14
PROVIDERS: ADMIT Orthopaedic Surgery; ATTEND Orthopaedic Surgery
PROC: 0RRJ0JZ Replacement of Right Shoulder Joint with Synthetic Substitute, Open Approach (ICD-10-PCS; principal; 2017-12-31 08:50)
DX: M19.011 Primary osteoarthritis, right shoulder (principal); E11.9 Type 2 diabetes mellitus without complications; I10 Essential (primary) hypertension; B19.20 Unspecified viral hepatitis C without hepatic coma; E66.01 Morbid (severe) obesity due to excess calories; F12.90 Cannabis use, unspecified, uncomplicated; F32.9 Major depressive disorder, single episode, unspecified; G40.409 Other generalized epilepsy and epileptic syndromes, not intractable, without status epilepticus; I48.2 Chronic atrial fibrillation; F43.10 Post-traumatic stress disorder, unspecified; K74.60 Unspecified cirrhosis of liver; Z96.653 Presence of artificial knee joint, bilateral; Z96.612 Presence of left artificial shoulder joint; Z88.8 Allergy status to other drugs, medicaments and biological substances; Z90.710 Acquired absence of both cervix and uterus; Z79.899 Other long term (current) drug therapy; Z85.828 Personal history of other malignant neoplasm of skin; Z87.891 Personal history of nicotine dependence; Z87.11 Personal history of peptic ulcer disease; Z68.37 Body mass index [BMI] 37.0-37.9, adult
CPT/HCPCS: 36415; 80051; 80053; 85025; 85610; 85730; 86885; 86900; 86901; 86920; 87070; 97110; 97116; 97162; 97530; A4565; A6223; A6253; A6449; A7000; C1713; C1758; C1776; G0378; J0690; J1100; J1170; J2001; J2250; J2270; J2405; J2704; J3010; J3370; J3490; J7030; J7120

== ENCOUNTER 2018-05-29 21:31 | Inpatient (IN) | payer MEDICARE, MEDICAID | END 2018-06-01 15:15 | disposition home or self-care (01) | LOC: ER 21:31 → PCU 3S 05-30 09:42 | DX: I27.20 Pulmonary hypertension, unspecified (principal); I50.23 Acute on chronic systolic (congestive) heart failure; J96.11 Chronic respiratory failure with hypoxia ==

== ENCOUNTER 2018-06-29 08:51 | Day surgery (SDC) | payer MEDICARE, MEDICAID ==
[~2018-06-29] VITALS: Ht 182.9 cm; Wt 123.5 kg
[2018-06-29] VITALS (21 sets, daily range): BP systolic 74–193; BP diastolic 48–132
[~2018-06-29 08:51] MED LIST changes: +FURO-149 PO; -FURO40TA4 PO; -LISI2.5T2 PO; -NORCO10T PO
[2018-06-29] MEDS ORDERED: normal saline 1000ml 1,000 ML IV PRN (09:45)
[2018-06-29 09:54] LABS: BASOPHILS % (AUTO) 0.7 % (0-1); EOSINOPHILS # (AUTO) 0.1 X10'3 (0-0.9); EOSINOPHILS % (AUTO) 1.5 % (0-6); HEMATOCRIT 45.1 % (35.0-45.0); HEMOGLOBIN 14.5 g/dl (12.0-16.0); LYMPHOCYTES % (AUTO) 17.6 % (21-51); MEAN CORPUSCULAR HEMOGLOBIN 26.6 PG (27.0-31.0); MEAN CORPUSCULAR VOLUME 83.2 FL (78-98); MONOCYTES # (AUTO) 0.4 X10'3 (0-0.9); MONOCYTES % (AUTO) 6.4 % (2-12); NEUTROPHILS # (AUTO) 4.4 X10'3 (1.8-7.7); NEUTROPHILS % (AUTO) 73.8 % (42-75); PLATELET COUNT 152 X10'3 (140-440); RED BLOOD COUNT 5.43 X10'6 (4.20-5.60); RED CELL DISTRIBUTION WIDTH 16.9 % (11.5-14.5); WHITE BLOOD COUNT 5.9 X10'3 (4.5-11.0)
[2018-06-29 10:07] LABS: ANION GAP 4 (8-16); BLOOD UREA NITROGEN 15 MG/DL (7-18); BUN/CREATININE RATIO 20.5 (6.6-38.0); CALCIUM 9.8 MG/DL (8.5-10.1); CHLORIDE 101 MMOL/L (99-107); CREATININE 0.73 MG/DL (0.40-0.90); GLUCOSE 103 MG/DL (70-104); POTASSIUM 3.6 MMOL/L (3.5-5.1); SODIUM 141 MMOL/L (135-145); eGFR 79 ML/MIN
[2018-06-29 10:08] LABS: ALBUMIN 4.1 G/DL (3.4-5.0)
[2018-06-29] MEDS ORDERED: Marjuana INH (10:15)
[2018-06-29] MEDS ORDERED: HYDR-4353 PO (10:15)
[2018-06-29] MEDS ORDERED: midazolam 2 mg/2 ml injection ONE (11:32)
[2018-06-29] MEDS ORDERED: fentaNYL/PF 50MCG/1 ML 2ML syringe ONE ×2 (11:33→12:42)
[2018-06-29] MEDS ORDERED: midazolam 2 mg/2 ml injection IV PRN (11:35)
[2018-06-29] MEDS ORDERED: LIDOcaine 1%/PF 5ML 10 MG/ML VIAL SQ ONE (11:35)
[2018-06-29] MEDS ORDERED: fentaNYL/PF 50MCG/1 ML 2ML syringe IV PRN (11:35)
[2018-06-29] MEDS ORDERED: sodium chloride 0.45% 1,000 ML IV SCH (12:04)
[2018-06-29] MEDS ORDERED: metoprolol tartrate 1mg/ml inj IV ONE (12:47)
[2018-06-29] MEDS ORDERED: HYDROcodone/acetaminophen 10/325mg tab PO ONE (13:30)
== END 2018-06-29 15:30 | disposition home or self-care (01) ==
LOC: SSTAY O 08:51
PROVIDERS: ATTEND Radiology Diagnostic Radiology
DX: R91.8 Other nonspecific abnormal finding of lung field (principal); I48.91 Unspecified atrial fibrillation; M19.90 Unspecified osteoarthritis, unspecified site; Z88.8 Allergy status to other drugs, medicaments and biological substances; F12.90 Cannabis use, unspecified, uncomplicated
CPT/HCPCS: 32405; 36415; 71045; 77012; 80048; 85025; 85610; 99152; 99153; J2250; J3010; J7030; J3490

== ENCOUNTER 2018-09-30 17:39 | Inpatient (IN) | payer MEDICARE, MEDICAID ==
[~2018-09-30] VITALS: Ht 182.9 cm; Wt 125.0 kg
[~2018-09-30 17:39] MED LIST changes: +ALBU2.5V7 NEB; +AMIO200T61 PO; -DILT240C54 PO; -FURO-149 PO; +HYDR-4353 PO; +IPRA3AMP9 NEB; +METO25TA6 PO; -POTA10TA19 PO
[2018-09-30 18:09] LABS: BASOPHILS # (AUTO) 0.1 X10'3 (0-0.2); BASOPHILS % (AUTO) 1.1 % (0-1); EOSINOPHILS # (AUTO) 0.1 X10'3 (0-0.9); EOSINOPHILS % (AUTO) 1.2 % (0-6); HEMATOCRIT 37.5 % (35.0-45.0); HEMOGLOBIN 12.1 g/dl (12.0-16.0); LYMPHOCYTES # (AUTO) 1.2 X10'3 (1.1-4.8); MEAN CORPUSCULAR HGB CONC 32.4 g/dL (33.0-36.5); MEAN CORPUSCULAR VOLUME 86.5 FL (78-98); MEAN PLATELET VOLUME 7.9 FL (7.4-10.4); MONOCYTES # (AUTO) 0.8 X10'3 (0-0.9); MONOCYTES % (AUTO) 11.5 % (2-12); NEUTROPHILS # (AUTO) 4.7 X10'3 (1.8-7.7); NEUTROPHILS % (AUTO) 69.2 % (42-75); PLATELET COUNT 166 X10'3 (140-440); RED BLOOD COUNT 4.34 X10'6 (4.20-5.60); RED CELL DISTRIBUTION WIDTH 16.4 % (11.5-14.5); WHITE BLOOD COUNT 6.8 X10'3 (4.5-11.0)
[2018-09-30 18:22] LABS: PARTIAL THROMBOPLASTIN TIME 42 SECONDS (22-32)
[2018-09-30 18:25] LABS: ALANINE AMINOTRANSFERASE 22 U/L (12-78); ALBUMIN 3.9 G/DL (3.4-5.0); ALBUMIN/GLOBULIN RATIO 1.1 (1.1-1.5); ALKALINE PHOSPHATASE 49 IU/L (46-116); ANION GAP 8 (8-16); ASPARTATE AMINO TRANSFERASE 24 U/L (10-37); BILIRUBIN,TOTAL 0.7 MG/DL (0.1-1.0); BLOOD UREA NITROGEN 26 MG/DL (7-18); BUN/CREATININE RATIO 26.3 (6.6-38.0); CHLORIDE 102 MMOL/L (99-107); CREATININE 0.99 MG/DL (0.40-0.90); GLUCOSE 109 MG/DL (70-104); SODIUM 142 MMOL/L (135-145); TOTAL CARBON DIOXIDE 32.1 MMOL/L (24-32); TOTAL PROTEIN 7.3 G/DL (6.4-8.2); eGFR 55 ML/MIN
[2018-09-30] MEDS ORDERED: iohexol 350MG/ML 100ml bottle IV ONE (18:42)
[2018-09-30] MEDS ORDERED: diltiazem 5mg/ml 5ml inj. IV ONE (19:15)
--- NOTE | 2018-09-30 19:32 | NUR ---
Spoke with MD Hitchcock concerning pt's request to not receive cardizem due to 'increased swelling'. MD Hitchcock reevaluated pt at bedside.
[2018-09-30] MEDS ORDERED: furosemide 10 MG/1 ML 10ml inj IV ONE (19:55)
[2018-09-30] MEDS ORDERED: metoprolol tartrate 1mg/ml inj IV ONE (19:55)
--- NOTE | 2018-09-30 20:20 | NUR ---
MD Bush present at bedside speaking with patient.
[2018-09-30] MEDS ORDERED: HYDROcodone/acetaminophen 10/325mg tab PO ONE (20:35)
[2018-09-30] MEDS ORDERED: FURO40TA4 PO (20:39)
[2018-09-30] MEDS ORDERED: HYDR-3973 PO (20:40)
[2018-09-30] MEDS ORDERED: magnesium hydroxide 30ml (MOM) UD suspension PO PRN (21:00)
[2018-09-30] MEDS ORDERED: ondansetron/PF 4mg/2ml inj IV PRN (21:00)
[2018-09-30] MEDS ORDERED: HYDROcodone/acetaminophen 5mg/325mg tablet PO PRN (21:00)
[2018-09-30] MEDS ORDERED: mag hydrox/Alum hydrox/simeth 30ml oral suspension PO PRN (21:00)
[2018-09-30] MEDS ORDERED: acetaminophen 325mg tablet PO PRN (21:00)
--- NOTE | 2018-09-30 21:07 | NUR ---
pt requested for sandwich,given to the pt,pt sitting up in bed.no distress noted,get sob in btwn when talks.will cont to monitor.call light within reach.
--- NOTE | 2018-09-30 22:00 | NUR ---
pt brought to unit via wheelchair, transferred self to bed. Oriented to unit, BLL, 2x rails up, call light in reach, oxygen in place. Vitals are 91HR, 97% on 3L O2, 18RR, bp 133/110, 98.6F Will continue to monitor
[2018-09-30 22:15] VITALS: BP 133/110
--- NOTE | 2018-09-30 22:15 | NUR ---
Lemuel RAMIREZ co-assessed pt's skin on admission. Addendum: 10/01/18 at 0109 by Jim Dunbar RN Amended: Links added.
[2018-10-01 04:00] VITALS: BP 139/104
[2018-10-01 05:55] LABS: BASOPHILS # (AUTO) 0.1 X10'3 (0-0.2); BASOPHILS % (AUTO) 0.9 % (0-1); EOSINOPHILS # (AUTO) 0.1 X10'3 (0-0.9); EOSINOPHILS % (AUTO) 1.1 % (0-6); HEMATOCRIT 35.8 % (35.0-45.0); HEMOGLOBIN 11.7 g/dl (12.0-16.0); LYMPHOCYTES # (AUTO) 0.9 X10'3 (1.1-4.8); LYMPHOCYTES % (AUTO) 16.2 % (21-51); MEAN CORPUSCULAR HEMOGLOBIN 28.5 PG (27.0-31.0); MEAN CORPUSCULAR HGB CONC 32.6 g/dL (33.0-36.5); MEAN CORPUSCULAR VOLUME 87.5 FL (78-98); MEAN PLATELET VOLUME 8.1 FL (7.4-10.4); MONOCYTES # (AUTO) 0.6 X10'3 (0-0.9); MONOCYTES % (AUTO) 11.2 % (2-12); NEUTROPHILS % (AUTO) 70.6 % (42-75); PLATELET COUNT 138 X10'3 (140-440); RED CELL DISTRIBUTION WIDTH 16.2 % (11.5-14.5); WHITE BLOOD COUNT 5.7 X10'3 (4.5-11.0)
[2018-10-01 06:07] LABS: ALANINE AMINOTRANSFERASE 22 U/L (12-78); ALBUMIN 3.8 G/DL (3.4-5.0); ALBUMIN/GLOBULIN RATIO 1.2 (1.1-1.5); ALKALINE PHOSPHATASE 49 IU/L (46-116); ANION GAP 6 (8-16); ASPARTATE AMINO TRANSFERASE 21 U/L (10-37); BILIRUBIN,TOTAL 0.7 MG/DL (0.1-1.0); BLOOD UREA NITROGEN 28 MG/DL (7-18); BUN/CREATININE RATIO 29.5 (6.6-38.0); CALCIUM 8.9 MG/DL (8.5-10.1); CHLORIDE 102 MMOL/L (99-107); CREATININE 0.95 MG/DL (0.40-0.90); GLUCOSE 104 MG/DL (70-104); SODIUM 142 MMOL/L (135-145); TOTAL CARBON DIOXIDE 33.9 MMOL/L (24-32); TOTAL PROTEIN 7.1 G/DL (6.4-8.2); eGFR 58 ML/MIN
--- NOTE | 2018-10-01 06:17 | NUR ---
Problems reprioritized. Patient report given, questions answered & plan of care reviewed with JAMES Almanza.
--- NOTE | 2018-10-01 06:25 | NUR ---
Patient in room [facility]. I have received report from JAMES Dowling and had the opportunity to ask questions and assume patient care.
[2018-10-01 07:24] VITALS: BP 136/112
[2018-10-01] MEDS ORDERED: metoprolol tartrate 25mg tablet PO SCH (08:00)
[2018-10-01] MEDS: amiodarone 200mg tablet PO SCH ×2 (08:11→19:26)
[2018-10-01] MEDS: furosemide 40mg/4ml inj IV SCH ×2 (08:11→19:26)
[2018-10-01] MEDS: dabigatran 150mg capsule PO SCH ×2 (08:17→19:26)
--- NOTE | 2018-10-01 11:15 | NUR ---
Malnutrition consult: Pt unsure if any wt loss but with a decrease in appetite per malnutrition risk screening with RN. Pt currently on regular diet with documented 0/50/0% PO intake first meal. Patient's wt is stable with documented scaled wt hx in EMR and generally with 75-100% PO intake during those visits. Pt with BLE 2+ edema however no decrease in muscle strength. Pt currently does not meet criteria for malnutrition at this time. Will continue to follow and monitor trends in PO intake and potential need for ONS. Addendum: 10/01/18 at [address] Amended: Links added.
[2018-10-01 12:03] VITALS: BP 151/118
--- NOTE | 2018-10-01 14:20 | NUR ---
Dr. Rivera made aware of patients' elevated diastolic BP. She increased the Metoprolol from 25mg to 50mg. Hopefully that will be effective in decreasing the diastolic pressure.
[2018-10-01 18:00] VITALS: BP 144/96
--- NOTE | 2018-10-01 18:20 | NUR ---
Patient complaining of chest pain. She said that it feels different than usual. EKG was taken by JAMES Hdez and Dr. Rivera was paged. Patient said that it's not radiating down her arm or up her jaw, and she's having no numbness in her left arm. She did say that it feels more like chest pressure. Patient is no more short of breath than usual. Currently on her usual O2 of 3L NC. Vitals were stable according to JAMES Hdez.
--- NOTE | 2018-10-01 18:25 | NUR ---
Problems reprioritized. Patient report given, questions answered & plan of care reviewed with JAMES Hdez.
--- NOTE | 2018-10-01 18:30 | NUR ---
Patient in room [facility]. I have received report from Cami RAMIREZ and had the opportunity to ask questions and assume patient care. Pt c/o chest pain and sob. EKG done and read by Nicole GUERRERO. Vital signs wnl. Pain medication given. will continue to monitor closely.
[2018-10-01] MEDS: HYDROcodone/acetaminophen 10/325mg tab PO PRN (18:42)
[2018-10-01] MEDS: metoprolol tartrate 50mg tablet PO SCH (19:26)
[2018-10-02] VITALS: BP 135/106
[2018-10-02 06:09] LABS: BASOPHILS % (AUTO) 0.4 % (0-1); EOSINOPHILS # (AUTO) 0.1 X10'3 (0-0.9); EOSINOPHILS % (AUTO) 1.7 % (0-6); HEMATOCRIT 36.2 % (35.0-45.0); HEMOGLOBIN 11.7 g/dl (12.0-16.0); LYMPHOCYTES # (AUTO) 1.2 X10'3 (1.1-4.8); LYMPHOCYTES % (AUTO) 22.7 % (21-51); MEAN CORPUSCULAR HEMOGLOBIN 28.1 PG (27.0-31.0); MEAN CORPUSCULAR HGB CONC 32.2 g/dL (33.0-36.5); MEAN CORPUSCULAR VOLUME 87.4 FL (78-98); MEAN PLATELET VOLUME 8.1 FL (7.4-10.4); MONOCYTES # (AUTO) 0.6 X10'3 (0-0.9); MONOCYTES % (AUTO) 11.8 % (2-12); NEUTROPHILS # (AUTO) 3.3 X10'3 (1.8-7.7); NEUTROPHILS % (AUTO) 63.4 % (42-75); PLATELET COUNT 151 X10'3 (140-440); RED BLOOD COUNT 4.15 X10'6 (4.20-5.60); RED CELL DISTRIBUTION WIDTH 16.7 % (11.5-14.5); WHITE BLOOD COUNT 5.3 X10'3 (4.5-11.0)
[2018-10-02 06:30] LABS: ALANINE AMINOTRANSFERASE 20 U/L (12-78); ALBUMIN 3.8 G/DL (3.4-5.0); ALBUMIN/GLOBULIN RATIO 1.2 (1.1-1.5); ALKALINE PHOSPHATASE 46 IU/L (46-116); ANION GAP 4 (8-16); ASPARTATE AMINO TRANSFERASE 19 U/L (10-37); BILIRUBIN,TOTAL 0.6 MG/DL (0.1-1.0); BLOOD UREA NITROGEN 29 MG/DL (7-18); BUN/CREATININE RATIO 31.9 (6.6-38.0); CALCIUM 9.3 MG/DL (8.5-10.1); CHLORIDE 102 MMOL/L (99-107); CREATININE 0.91 MG/DL (0.40-0.90); GLUCOSE 99 MG/DL (70-104); POTASSIUM 4.1 MMOL/L (3.5-5.1); SODIUM 142 MMOL/L (135-145); TOTAL CARBON DIOXIDE 35.8 MMOL/L (24-32); TOTAL PROTEIN 7.1 G/DL (6.4-8.2); eGFR 61 ML/MIN
--- NOTE | 2018-10-02 06:30 | NUR ---
Problems reprioritized. Patient report given, questions answered & plan of care reviewed with Mami RAMIREZ.
[2018-10-02 07:00] VITALS: BP 130/101
[2018-10-02] MEDS: furosemide 40mg/4ml inj IV SCH ×2 (07:46→21:20)
[2018-10-02] MEDS: amiodarone 200mg tablet PO SCH ×2 (07:46→21:20)
[2018-10-02] MEDS: metoprolol tartrate 50mg tablet PO SCH ×2 (07:46→21:20)
[2018-10-02] MEDS: dabigatran 150mg capsule PO SCH ×2 (07:46→21:20)
[2018-10-02 09:46] VITALS: BP 130/80
[2018-10-02] MEDS: HYDROcodone/acetaminophen 10/325mg tab PO PRN ×2 (10:44→21:35)
[2018-10-02 11:24] VITALS: BP 136/96
[2018-10-02 17:15] VITALS: BP 114/92
[2018-10-02] MEDS: lisinopril 10 MG tablet PO SCH (17:27)
[2018-10-02 18:00] VITALS: BP 108/85
--- NOTE | 2018-10-02 18:47 | NUR ---
Patient in room [facility]. I have received report from JAMES Kingsley and had the opportunity to ask questions and assume patient care.
--- NOTE | 2018-10-02 18:47 | NUR ---
Problems reprioritized. Patient report given, questions answered & plan of care reviewed with juvenal lee.
[2018-10-03] VITALS: BP 138/88
[2018-10-03 06:05] LABS: BASOPHILS % (AUTO) 0.4 % (0-1); EOSINOPHILS # (AUTO) 0.1 X10'3 (0-0.9); EOSINOPHILS % (AUTO) 2.6 % (0-6); HEMATOCRIT 35.8 % (35.0-45.0); HEMOGLOBIN 11.5 g/dl (12.0-16.0); LYMPHOCYTES % (AUTO) 19.6 % (21-51); MEAN CORPUSCULAR HEMOGLOBIN 28.1 PG (27.0-31.0); MEAN CORPUSCULAR VOLUME 87.8 FL (78-98); MEAN PLATELET VOLUME 8.6 FL (7.4-10.4); MONOCYTES # (AUTO) 0.7 X10'3 (0-0.9); MONOCYTES % (AUTO) 13.9 % (2-12); NEUTROPHILS # (AUTO) 3.1 X10'3 (1.8-7.7); NEUTROPHILS % (AUTO) 63.5 % (42-75); PLATELET COUNT 137 X10'3 (140-440); RED BLOOD COUNT 4.08 X10'6 (4.20-5.60); WHITE BLOOD COUNT 4.9 X10'3 (4.5-11.0)
--- NOTE | 2018-10-03 06:21 | NUR ---
Problems reprioritized. Patient report given, questions answered & plan of care reviewed with JAMES Kingsley.
[2018-10-03 06:25] LABS: ALANINE AMINOTRANSFERASE 19 U/L (12-78); ALBUMIN 3.6 G/DL (3.4-5.0); ALBUMIN/GLOBULIN RATIO 1.1 (1.1-1.5); ALKALINE PHOSPHATASE 45 IU/L (46-116); ANION GAP 5 (8-16); ASPARTATE AMINO TRANSFERASE 15 U/L (10-37); BILIRUBIN,TOTAL 0.6 MG/DL (0.1-1.0); BLOOD UREA NITROGEN 31 MG/DL (7-18); BUN/CREATININE RATIO 29.2 (6.6-38.0); CALCIUM 8.6 MG/DL (8.5-10.1); CHLORIDE 102 MMOL/L (99-107); CREATININE 1.06 MG/DL (0.40-0.90); GLUCOSE 100 MG/DL (70-104); POTASSIUM 3.6 MMOL/L (3.5-5.1); SODIUM 144 MMOL/L (135-145); TOTAL CARBON DIOXIDE 37.1 MMOL/L (24-32); TOTAL PROTEIN 6.9 G/DL (6.4-8.2); eGFR 51 ML/MIN
--- NOTE | 2018-10-03 06:40 | NUR ---
Patient in room [facility]. I have received report from ROSA RAMRIEZ and had the opportunity to ask questions and assume patient care.
[2018-10-03 07:00] VITALS: BP 117/83
[2018-10-03] MEDS: dabigatran 150mg capsule PO SCH ×2 (07:57→20:03)
[2018-10-03] MEDS: furosemide 40mg/4ml inj IV SCH (07:57)
[2018-10-03] MEDS: lisinopril 10 MG tablet PO SCH ×2 (07:57→08:00)
[2018-10-03] MEDS: amiodarone 200mg tablet PO SCH ×2 (07:57→20:04)
[2018-10-03] MEDS: metoprolol tartrate 50mg tablet PO SCH ×2 (07:57→20:07)
[2018-10-03] MEDS: HYDROcodone/acetaminophen 10/325mg tab PO PRN (14:42)
[2018-10-03 18:00] VITALS: BP 110/88
--- NOTE | 2018-10-03 18:24 | NUR ---
Problems reprioritized. Patient report given, questions answered & plan of care reviewed with EVELIA RAMIREZ.
--- NOTE | 2018-10-03 18:29 | NUR ---
Patient in room [facility]. I have received report from JAMES Bolaños and had the opportunity to ask questions and assume patient care.
[2018-10-03] MEDS: furosemide 40mg tablet PO SCH (20:04)
[2018-10-04] VITALS: BP 132/94
[2018-10-04] MEDS: HYDROcodone/acetaminophen 10/325mg tab PO PRN ×2 (01:32→18:47)
[2018-10-04 05:22] LABS: BASOPHILS % (AUTO) 0.4 % (0-1); EOSINOPHILS # (AUTO) 0.1 X10'3 (0-0.9); EOSINOPHILS % (AUTO) 1.7 % (0-6); HEMATOCRIT 37.8 % (35.0-45.0); HEMOGLOBIN 12.2 g/dl (12.0-16.0); LYMPHOCYTES % (AUTO) 20.7 % (21-51); MEAN CORPUSCULAR HEMOGLOBIN 28.4 PG (27.0-31.0); MEAN CORPUSCULAR HGB CONC 32.1 g/dL (33.0-36.5); MEAN CORPUSCULAR VOLUME 88.4 FL (78-98); MEAN PLATELET VOLUME 8.4 FL (7.4-10.4); MONOCYTES # (AUTO) 0.6 X10'3 (0-0.9); MONOCYTES % (AUTO) 12.7 % (2-12); NEUTROPHILS # (AUTO) 3.2 X10'3 (1.8-7.7); NEUTROPHILS % (AUTO) 64.5 % (42-75); PLATELET COUNT 132 X10'3 (140-440); RED BLOOD COUNT 4.28 X10'6 (4.20-5.60); RED CELL DISTRIBUTION WIDTH 16.7 % (11.5-14.5); WHITE BLOOD COUNT 4.9 X10'3 (4.5-11.0)
[2018-10-04 05:39] LABS: ALANINE AMINOTRANSFERASE 23 U/L (12-78); ALBUMIN 3.6 G/DL (3.4-5.0); ALBUMIN/GLOBULIN RATIO 1.1 (1.1-1.5); ALKALINE PHOSPHATASE 46 IU/L (46-116); ANION GAP 2 (8-16); ASPARTATE AMINO TRANSFERASE 17 U/L (10-37); BILIRUBIN,TOTAL 0.6 MG/DL (0.1-1.0); BLOOD UREA NITROGEN 30 MG/DL (7-18); BUN/CREATININE RATIO 29.7 (6.6-38.0); CALCIUM 8.5 MG/DL (8.5-10.1); CHLORIDE 102 MMOL/L (99-107); CREATININE 1.01 MG/DL (0.40-0.90); GLUCOSE 94 MG/DL (70-104); POTASSIUM 3.5 MMOL/L (3.5-5.1); SODIUM 143 MMOL/L (135-145); TOTAL CARBON DIOXIDE 38.7 MMOL/L (24-32); TOTAL PROTEIN 6.9 G/DL (6.4-8.2); eGFR 54 ML/MIN
--- NOTE | 2018-10-04 06:30 | NUR ---
Patient in room [facility]. I have received report from JAMES Rollins and had the opportunity to ask questions and assume patient care.
--- NOTE | 2018-10-04 06:33 | NUR ---
Problems reprioritized. Patient report given, questions answered & plan of care reviewed with JAMES Almanza.
[2018-10-04] MEDS: furosemide 40mg tablet PO SCH ×2 (07:15→20:33)
[2018-10-04] MEDS: amiodarone 200mg tablet PO SCH (07:15)
[2018-10-04] MEDS: metoprolol tartrate 50mg tablet PO SCH (07:16)
[2018-10-04] MEDS: dabigatran 150mg capsule PO SCH ×2 (07:19→20:33)
[2018-10-04 07:28] VITALS: BP 134/94
[2018-10-04 12:00] VITALS: BP 119/94
[2018-10-04 18:00] VITALS: BP 111/86
--- NOTE | 2018-10-04 18:26 | NUR ---
Problems reprioritized. Patient report given, questions answered & plan of care reviewed with JAMES Rollins.
--- NOTE | 2018-10-04 18:34 | NUR ---
Patient in room [facility]. I have received report from JAMES Almanza and had the opportunity to ask questions and assume patient care.
[2018-10-04] MEDS: carVEDilol 12.5mg tablet PO SCH (20:33)
[2018-10-04] MEDS: lisinopril 10 MG tablet PO SCH (20:33)
[2018-10-05] VITALS: BP 126/95
[2018-10-05 05:25] LABS: BASOPHILS % (AUTO) 0.5 % (0-1); EOSINOPHILS # (AUTO) 0.1 X10'3 (0-0.9); EOSINOPHILS % (AUTO) 1.4 % (0-6); HEMATOCRIT 35.6 % (35.0-45.0); HEMOGLOBIN 11.4 g/dl (12.0-16.0); LYMPHOCYTES # (AUTO) 0.9 X10'3 (1.1-4.8); LYMPHOCYTES % (AUTO) 18.2 % (21-51); MEAN CORPUSCULAR HEMOGLOBIN 28.2 PG (27.0-31.0); MEAN CORPUSCULAR HGB CONC 32.1 g/dL (33.0-36.5); MEAN CORPUSCULAR VOLUME 87.8 FL (78-98); MEAN PLATELET VOLUME 8.4 FL (7.4-10.4); MONOCYTES # (AUTO) 0.6 X10'3 (0-0.9); MONOCYTES % (AUTO) 13.3 % (2-12); NEUTROPHILS # (AUTO) 3.2 X10'3 (1.8-7.7); NEUTROPHILS % (AUTO) 66.6 % (42-75); PLATELET COUNT 130 X10'3 (140-440); RED BLOOD COUNT 4.05 X10'6 (4.20-5.60); RED CELL DISTRIBUTION WIDTH 16.3 % (11.5-14.5); WHITE BLOOD COUNT 4.9 X10'3 (4.5-11.0)
[2018-10-05 05:29] LABS: ALANINE AMINOTRANSFERASE 18 U/L (12-78); ALBUMIN 3.5 G/DL (3.4-5.0); ALBUMIN/GLOBULIN RATIO 1.1 (1.1-1.5); ALKALINE PHOSPHATASE 45 IU/L (46-116); ANION GAP 3 (8-16); ASPARTATE AMINO TRANSFERASE 13 U/L (10-37); BILIRUBIN,TOTAL 0.5 MG/DL (0.1-1.0); BLOOD UREA NITROGEN 28 MG/DL (7-18); BUN/CREATININE RATIO 23.7 (6.6-38.0); CALCIUM 8.5 MG/DL (8.5-10.1); CHLORIDE 102 MMOL/L (99-107); CREATININE 1.18 MG/DL (0.40-0.90); GLUCOSE 106 MG/DL (70-104); POTASSIUM 3.2 MMOL/L (3.5-5.1); SODIUM 143 MMOL/L (135-145); TOTAL PROTEIN 6.7 G/DL (6.4-8.2); eGFR 45 ML/MIN
--- NOTE | 2018-10-05 06:30 | NUR ---
Patient in room [facility]. I have received report from Ayo RAMIREZ and had the opportunity to ask questions and assume patient care.
--- NOTE | 2018-10-05 06:37 | NUR ---
Problems reprioritized. Patient report given, questions answered & plan of care reviewed with JAMES Zaragoza.
[2018-10-05 07:31] VITALS: BP 129/92
[2018-10-05] MEDS: furosemide 40mg tablet PO SCH ×2 (07:53→20:13)
[2018-10-05] MEDS: dabigatran 150mg capsule PO SCH ×2 (07:53→20:11)
[2018-10-05] MEDS: carVEDilol 12.5mg tablet PO SCH ×2 (07:53→20:11)
[2018-10-05 11:00] VITALS: BP 127/85
--- NOTE | 2018-10-05 12:41 | NUR ---
Initial: Pt admit with SOB, left PE, and CHF exacerbation. Per MD notes SOB improving and pt s/p echo with findings of LVEF 30-35%, pt to continue with diuresis. Pt currently on regular diet with documented fluctuating PO intake overall 75-100% meeting nutrient needs. [facility] 10/04. No nutrition diagnosis at this time. Will continue to follow. Recommendations: 1) Diet change to heart healthy 2) Wt per rx Addendum: 10/05/18 at [address] Amended: Links added.
[2018-10-05] MEDS: HYDROcodone/acetaminophen 10/325mg tab PO PRN ×2 (14:52→20:17)
[2018-10-05] MEDS ORDERED: magnesium 4gm in 100ml NS 100 ML IV PRN (16:45)
[2018-10-05] MEDS ORDERED: potassium Cl 20 mEq SR tablet PO PRN (16:45)
[2018-10-05] MEDS ORDERED: magnesium 2GM in 50ml NS 50 ML IV PRN (16:45)
[2018-10-05] MEDS ORDERED: potassium CL 10mEq/100ml bag 100 ML IV PRN (16:45)
[2018-10-05] MEDS ORDERED: magnesium Cl slow-release 64mg tablet PO PRN (16:45)
[2018-10-05] MEDS: potassium Cl 20 mEq SR tablet PO PRN (17:28)
[2018-10-05 18:00] VITALS: BP 130/95
--- NOTE | 2018-10-05 18:30 | NUR ---
Problems reprioritized. Patient report given, questions answered & plan of care reviewed with Ayo RAMIREZ.
--- NOTE | 2018-10-05 18:40 | NUR ---
Problems reprioritized. Patient report given, questions answered & plan of care reviewed with Ayo RAMIREZ.
[2018-10-05] MEDS: lisinopril 10 MG tablet PO SCH (20:14)
[2018-10-06 00:51] VITALS: BP 135/92
[2018-10-06] MEDS: potassium Cl 20 mEq SR tablet PO PRN ×2 (03:24→09:54)
--- NOTE | 2018-10-06 06:13 | NUR ---
Problems reprioritized. Patient report given, questions answered & plan of care reviewed with JAMES Kingsley.
--- NOTE | 2018-10-06 07:00 | NUR ---
Patient in room [facility]. I have received report from EVELIA RAMIREZ and had the opportunity to ask questions and assume patient care.
[2018-10-06 08:00] VITALS: BP 148/98
[2018-10-06] MEDS: furosemide 40mg tablet PO SCH (08:22)
[2018-10-06] MEDS: carVEDilol 12.5mg tablet PO SCH (08:22)
[2018-10-06] MEDS: dabigatran 150mg capsule PO SCH (08:22)
[2018-10-06] MEDS: HYDROcodone/acetaminophen 10/325mg tab PO PRN (08:22)
[2018-10-06 09:28] LABS: MAGNESIUM 1.6 MG/DL (1.5-2.4); POTASSIUM 3.4 MMOL/L (3.5-5.1)
[2018-10-06 11:19] VITALS: BP 129/91
[2018-10-06] MEDS ORDERED: LISI10TA4 PO (12:11)
[2018-10-06] MEDS ORDERED: CARV-50 PO (12:11)
[2018-10-06] MEDS ORDERED: POTA20TA10 PO (12:11)
--- NOTE | 2018-10-06 13:55 | NUR ---
PT DISCHARGED IN STABLE CONDITION. LEFT FACILITY WITH FAMILY. IV DC CANULA INTACT. FOLLOW UP INSTRUCTIONS GIVEN, ALL QUESTIONS ANSWERED. ALL BELONGINGS IN HAND, INCLUDING LIFEVEST AND MEDICATIONS DELIVERED BY WIRGHT BEDSIDE. Addendum: 10/06/18 at 1359 by Teetee Davis RN Amended: Links added.
== END 2018-10-06 13:50 | disposition home or self-care (01) | DRG 291 ==
LOC: ER 17:40 → SUR 3N 22:43 → CMPBEDREQ 10-04 21:12
PROVIDERS: ADMIT Internal Medicine; ATTEND Family Medicine
PROC: B32T1ZZ Computerized Tomography (CT Scan) of Left Pulmonary Artery using Low Osmolar Contrast (ICD-10-PCS; principal; 2018-09-30)
PROC: B3201ZZ Computerized Tomography (CT Scan) of Thoracic Aorta using Low Osmolar Contrast (ICD-10-PCS; 2018-09-30)
PROC: B32S1ZZ Computerized Tomography (CT Scan) of Right Pulmonary Artery using Low Osmolar Contrast (ICD-10-PCS; 2018-09-30)
DX: I13.0 Hypertensive heart and chronic kidney disease with heart failure and stage 1 through stage 4 chronic kidney disease, or unspecified chronic kidney disease (principal); I50.23 Acute on chronic systolic (congestive) heart failure; I48.1 Persistent atrial fibrillation; E87.6 Hypokalemia; Z60.2 Problems related to living alone; Z96.612 Presence of left artificial shoulder joint; Z96.653 Presence of artificial knee joint, bilateral; B19.20 Unspecified viral hepatitis C without hepatic coma; F12.90 Cannabis use, unspecified, uncomplicated; M19.90 Unspecified osteoarthritis, unspecified site; R00.0 Tachycardia, unspecified; I25.10 Atherosclerotic heart disease of native coronary artery without angina pectoris; N18.9 Chronic kidney disease, unspecified; Z79.899 Other long term (current) drug therapy; Z82.49 Family history of ischemic heart disease and other diseases of the circulatory system; Z85.118 Personal history of other malignant neoplasm of bronchus and lung; Z87.891 Personal history of nicotine dependence; Z90.710 Acquired absence of both cervix and uterus; Z88.8 Allergy status to other drugs, medicaments and biological substances; Z87.440 Personal history of urinary (tract) infections; Z99.81 Dependence on supplemental oxygen
CPT/HCPCS: 36415; 71045; 71275; 76937; 80053; 83735; 83880; 84132; 84484; 85025; 85610; 85730; 87081; 93005; 93306; 96374; 96375; 97110; 97116; 97161; 97530; 99285; G0378; J1940; J3490; Q9967

== ENCOUNTER 2018-11-03 16:53 | Inpatient (IN) | payer MEDICARE, MEDICAID ==
[~2018-11-03] VITALS: Ht 167.6 cm; Wt 131.0 kg
[~2018-11-03 16:53] MED LIST changes: -ALBU2.5V7 NEB; -AMIO200T61 PO; +CARV-50 PO; +FURO40TA4 PO; +HYDR-3973 PO; -HYDR-4353 PO; -IPRA3AMP9 NEB; +LISI10TA4 PO; -METO25TA6 PO; +POTA20TA10 PO
[2018-11-03] MEDS ORDERED: furosemide 10 MG/1 ML 10ml inj IV ONE (17:05)
[2018-11-03] MEDS ORDERED: nitroGLYCERIN 1gm ointment UD TP ONE (17:05)
[2018-11-03 17:31] LABS: BASOPHILS % (AUTO) 0.6 % (0-1); EOSINOPHILS # (AUTO) 0.1 X10'3 (0-0.9); EOSINOPHILS % (AUTO) 1.4 % (0-6); HEMATOCRIT 39.7 % (35.0-45.0); HEMOGLOBIN 12.5 g/dl (12.0-16.0); LYMPHOCYTES # (AUTO) 0.9 X10'3 (1.1-4.8); LYMPHOCYTES % (AUTO) 17.4 % (21-51); MEAN CORPUSCULAR HEMOGLOBIN 27.6 PG (27.0-31.0); MEAN CORPUSCULAR HGB CONC 31.4 g/dL (33.0-36.5); MEAN CORPUSCULAR VOLUME 87.7 FL (78-98); MEAN PLATELET VOLUME 8.4 FL (7.4-10.4); MONOCYTES # (AUTO) 0.5 X10'3 (0-0.9); MONOCYTES % (AUTO) 9.6 % (2-12); NEUTROPHILS # (AUTO) 3.5 X10'3 (1.8-7.7); PLATELET COUNT 148 X10'3 (140-440); RED BLOOD COUNT 4.52 X10'6 (4.20-5.60); RED CELL DISTRIBUTION WIDTH 17.3 % (11.5-14.5)
--- NOTE | 2018-11-03 17:44 | NUR ---
Pt. transferred to CT by rail transportation operator.
[2018-11-03 18:07] LABS: ALANINE AMINOTRANSFERASE 10 U/L (12-78); ALBUMIN 4.1 G/DL (3.4-5.0); ALBUMIN/GLOBULIN RATIO 1.2 (1.1-1.5); ALKALINE PHOSPHATASE 40 IU/L (46-116); ANION GAP 8 (8-16); ASPARTATE AMINO TRANSFERASE 18 U/L (10-37); BILIRUBIN,TOTAL 0.8 MG/DL (0.1-1.0); BLOOD UREA NITROGEN 25 MG/DL (7-18); CALCIUM 9.2 MG/DL (8.5-10.1); CHLORIDE 99 MMOL/L (99-107); CREATININE 1.04 MG/DL (0.40-0.90); GLUCOSE 105 MG/DL (70-104); POTASSIUM 3.9 MMOL/L (3.5-5.1); SODIUM 144 MMOL/L (135-145); TOTAL CARBON DIOXIDE 36.7 MMOL/L (24-32); TOTAL PROTEIN 7.5 G/DL (6.4-8.2); eGFR 52 ML/MIN
[2018-11-03] MEDS ORDERED: metoprolol tartrate 1mg/ml inj IV ONE (18:35)
[2018-11-03] MEDS ORDERED: albuterol 2.5 MG/3 ML nebule NEB PRN (20:15)
[2018-11-03] MEDS ORDERED: magnesium 2GM in 50ml NS 50 ML IV PRN (20:15)
[2018-11-03] MEDS ORDERED: magnesium 4gm in 100ml NS 100 ML IV PRN (20:15)
[2018-11-03] MEDS ORDERED: ondansetron/PF 4mg/2ml inj IV PRN (20:15)
[2018-11-03] MEDS ORDERED: potassium Cl 20 mEq SR tablet PO PRN ×3 (20:15→20:20)
[2018-11-03] MEDS ORDERED: magnesium Cl slow-release 64mg tablet PO PRN (20:15)
[2018-11-03] MEDS ORDERED: mag hydrox/Alum hydrox/simeth 30ml oral suspension PO PRN (20:15)
[2018-11-03] MEDS ORDERED: acetaminophen 325mg tablet PO PRN ×2 (20:15)
[2018-11-03] MEDS ORDERED: magnesium hydroxide 30ml (MOM) UD suspension PO PRN (20:15)
[2018-11-03] MEDS ORDERED: potassium CL 10mEq/100ml bag 100 ML IV PRN ×2 (20:15)
[2018-11-03 21:30] VITALS: BP 149/109
--- NOTE | 2018-11-03 21:56 | NUR ---
Patient in room PCU 3022. I have received report from JAMES Silva in ER and had the opportunity to ask questions and assume patient care. Patient alert and oriented x4, 3L nasal cannula, and has 18 G field start in L AC. Patient brought up by jan and ambulated to bed with minimal shortness of breath. Vital signs obtained- see interventions. Patient belongings in closet. Glasses and upper dentures stayed on patient. Will continue to monitor closely.
[2018-11-03 22:00] VITALS: BP 133/107
[2018-11-03] MEDS: HYDROcodone/acetaminophen 10/325mg tab PO PRN (22:55)
[2018-11-03] MEDS ORDERED: carVEDilol 12.5mg tablet PO STA (23:49)
--- NOTE | 2018-11-03 23:49 | NUR ---
Carvedilol PO 12.5 mg given now 2350 for DBPs >100s as ordered by Dr. Mcfarlane. Patient last took Carvedilol 10/28.
[2018-11-04] VITALS (8 sets, daily range): BP systolic 113–137; BP diastolic 87–105
[2018-11-04] MEDS: furosemide 40mg/4ml inj IV SCH ×4 (00:09→19:52)
--- NOTE | 2018-11-04 04:32 | NUR ---
Student documentation: I have reviewed and agree with all interventions, assessments performed and documented by JAMES Clifton.
[2018-11-04 05:25] LABS: BASOPHILS % (AUTO) 0.6 % (0-1); EOSINOPHILS # (AUTO) 0.1 X10'3 (0-0.9); EOSINOPHILS % (AUTO) 1.5 % (0-6); HEMATOCRIT 37.5 % (35.0-45.0); HEMOGLOBIN 11.8 g/dl (12.0-16.0); LYMPHOCYTES # (AUTO) 0.8 X10'3 (1.1-4.8); LYMPHOCYTES % (AUTO) 16.7 % (21-51); MEAN CORPUSCULAR HEMOGLOBIN 27.4 PG (27.0-31.0); MEAN CORPUSCULAR HGB CONC 31.5 g/dL (33.0-36.5); MEAN CORPUSCULAR VOLUME 86.9 FL (78-98); MEAN PLATELET VOLUME 8.3 FL (7.4-10.4); MONOCYTES # (AUTO) 0.5 X10'3 (0-0.9); MONOCYTES % (AUTO) 10.5 % (2-12); NEUTROPHILS # (AUTO) 3.2 X10'3 (1.8-7.7); NEUTROPHILS % (AUTO) 70.7 % (42-75); PLATELET COUNT 138 X10'3 (140-440); RED BLOOD COUNT 4.31 X10'6 (4.20-5.60); RED CELL DISTRIBUTION WIDTH 17.3 % (11.5-14.5); WHITE BLOOD COUNT 4.6 X10'3 (4.5-11.0)
[2018-11-04 05:36] LABS: ALBUMIN 3.7 G/DL (3.4-5.0); ANION GAP 6 (8-16); BLOOD UREA NITROGEN 24 MG/DL (7-18); BUN/CREATININE RATIO 23.5 (6.6-38.0); CALCIUM 8.8 MG/DL (8.5-10.1); CHLORIDE 100 MMOL/L (99-107); CREATININE 1.02 MG/DL (0.40-0.90); GLUCOSE 107 MG/DL (70-104); MAGNESIUM 1.7 MG/DL (1.5-2.4); POTASSIUM 3.7 MMOL/L (3.5-5.1); SODIUM 145 MMOL/L (135-145); TOTAL CARBON DIOXIDE 38.8 MMOL/L (24-32); eGFR 54 ML/MIN
--- NOTE | 2018-11-04 06:29 | NUR ---
Problems reprioritized. Patient report given, questions answered & plan of care reviewed with JAMES Kerr.
[2018-11-04] MEDS: carVEDilol 12.5mg tablet PO SCH ×2 (07:28→19:51)
--- NOTE | 2018-11-04 07:39 | NUR ---
Per NOC nurse handoff report, nitro patch removed on 11/04/18 at 0530. Has scheduled nitro patch ordered for 11/04 0800. Spoke with Lorri from pharmacy, and retimed patch application to 11/04 1700.
[2018-11-04] MEDS: HYDROcodone/acetaminophen 5mg/325mg tablet PO PRN (07:44)
[2018-11-04] MEDS: K and/or MAG REPLACEMENT MC SCH (07:45)
[2018-11-04] MEDS ORDERED: nitroGLYCERIN 0.4mg/hour patch TD SCH (08:00)
[2018-11-04 09:53] LABS: LACTATE DEHYDROGENASE 301 U/L (81-234); TOTAL PROTEIN 6.9 G/DL (6.4-8.2)
[2018-11-04 12:13] LABS: GLUCOSE,BODY FLUID 117 MG/DL; LDH,BODY FLUID 157 U/L; TOTAL PROTEIN,BODY FLUID 3.3 G/DL
[2018-11-04 12:47] LABS: BF RBC COUNT 303000 /CU MM; BF WBC COUNT 572 /CU MM (0-1000); BFAPPEAR BLOODY; BFCOLOR RED; BFVOLUME 36 ML
[2018-11-04] MEDS: HYDROcodone/acetaminophen 10/325mg tab PO PRN ×2 (13:00→21:49)
[2018-11-04 13:55] LABS: BF MESOTHELIAL CELLS FEW; LYMPHOCYTES,BODY FLUID 40 %; MONOCYTES,BODY FLUID 33 %; NEUTROPHILS,BODY FLUID 27 %
[2018-11-04] MEDS: nitroGLYCERIN 0.4mg/hour patch TD SCH (16:49)
--- NOTE | 2018-11-04 18:11 | NUR ---
Patient in room PCU 3022. I have received report from Mandy RAMIREZ and had the opportunity to ask questions and assume patient care.
--- NOTE | 2018-11-04 18:54 | NUR ---
Problems reprioritized. Patient report given, questions answered & plan of care reviewed with Shona RAMIREZ.
[2018-11-05 02:00] VITALS: BP 120/98
[2018-11-05] MEDS: HYDROcodone/acetaminophen 10/325mg tab PO PRN ×3 (02:06→19:53)
[2018-11-05 02:27] VITALS: BP 131/104
[2018-11-05] MEDS: HYDROcodone/acetaminophen 5mg/325mg tablet PO PRN (05:28)
[2018-11-05 06:00] VITALS: BP 125/91
--- NOTE | 2018-11-05 06:06 | NUR ---
Problems reprioritized. Patient report given, questions answered & plan of care reviewed with Mandy RAMIREZ.
--- NOTE | 2018-11-05 06:42 | NUR ---
Patient in room PCU 3022. I have received report from Shona RAMIREZ and had the opportunity to ask questions and assume patient care.
[2018-11-05 07:12] LABS: BASOPHILS % (AUTO) 0.7 % (0-1); EOSINOPHILS # (AUTO) 0.1 X10'3 (0-0.9); HEMATOCRIT 38.3 % (35.0-45.0); HEMOGLOBIN 12.1 g/dl (12.0-16.0); LYMPHOCYTES % (AUTO) 21.1 % (21-51); MEAN CORPUSCULAR HEMOGLOBIN 27.6 PG (27.0-31.0); MEAN CORPUSCULAR HGB CONC 31.5 g/dL (33.0-36.5); MEAN CORPUSCULAR VOLUME 87.6 FL (78-98); MEAN PLATELET VOLUME 8.4 FL (7.4-10.4); MONOCYTES # (AUTO) 0.5 X10'3 (0-0.9); MONOCYTES % (AUTO) 10.1 % (2-12); NEUTROPHILS # (AUTO) 3.1 X10'3 (1.8-7.7); NEUTROPHILS % (AUTO) 66.1 % (42-75); PLATELET COUNT 143 X10'3 (140-440); RED BLOOD COUNT 4.37 X10'6 (4.20-5.60); WHITE BLOOD COUNT 4.7 X10'3 (4.5-11.0)
[2018-11-05 07:26] LABS: ALBUMIN 3.7 G/DL (3.4-5.0); ANION GAP 4 (8-16); BLOOD UREA NITROGEN 25 MG/DL (7-18); BUN/CREATININE RATIO 22.1 (6.6-38.0); CALCIUM 8.7 MG/DL (8.5-10.1); CHLORIDE 100 MMOL/L (99-107); CREATININE 1.13 MG/DL (0.40-0.90); GLUCOSE 90 MG/DL (70-104); MAGNESIUM 1.7 MG/DL (1.5-2.4); POTASSIUM 3.5 MMOL/L (3.5-5.1); SODIUM 144 MMOL/L (135-145); TOTAL CARBON DIOXIDE 39.8 MMOL/L (24-32); eGFR 48 ML/MIN
[2018-11-05] MEDS: furosemide 40mg/4ml inj IV SCH ×2 (07:42→19:54)
[2018-11-05] MEDS: carVEDilol 12.5mg tablet PO SCH ×2 (07:42→19:54)
[2018-11-05] MEDS: K and/or MAG REPLACEMENT MC SCH (07:52)
--- NOTE | 2018-11-05 11:15 | NUR ---
MRSA informational handout provided to patient, discussed that patient is positive for MRSA in nares. Pt verbalizes understanding, states that she has received this information in the past. Reinforced proper hand hygiene practices with patient. Asked patient if she had any questions regarding MRSA, pt states that she does not at this time.
--- NOTE | 2018-11-05 15:00 | NUR ---
Patient c/o pins and needles originating from skin tear on medial aspect of right lower extremity. Wound was weeping yesterday to which I did a dressing change. Upon assessing the wound it is now oozing with yellow pus and the surrounding tissue is erythematous. Per the pt. she has a history of staph infection on that same leg from the 80s d/t wearing synthetic panty hoses. Spoke with wound care nurse regarding this concern and she suggested a wound consult order be placed as well as vascular studies. I will also suggest a wound culture.
--- NOTE | 2018-11-05 15:47 | NUR ---
PAGER ID: [phone] MESSAGE: [phone], Jovi Adam Wound concern. Pls call. Thanks! Mandy RUSHING [phone]
--- NOTE | 2018-11-05 15:50 | NUR ---
Spoke with Nicole GUERRERO. She states that she is on board with having a wound consult and cultures done. Vascular studies not needed at this time per MD.
[2018-11-05] MEDS: nitroGLYCERIN 0.4mg/hour patch TD SCH (17:34)
[2018-11-05 18:00] VITALS: BP 116/84
--- NOTE | 2018-11-05 18:10 | NUR ---
Patient in room PCU 3022. I have received report from JAMES Pascual and had the opportunity to ask questions and assume patient care. Patient is A & O x4, denies CP, dizziness, n/v and rated pain 6/10. Patient states that she suffers of arthritis. Pt tested positive for MRSA and education was provided by JAMES Pascual. Will administer apian medication and will continue to monitor
--- NOTE | 2018-11-05 19:05 | NUR ---
Problems reprioritized. Patient report given, questions answered & plan of care reviewed with Arpita RAMIREZ.
[2018-11-05 22:00] VITALS: BP 101/68
[2018-11-06 02:00] VITALS: BP 99/74
[2018-11-06] MEDS: HYDROcodone/acetaminophen 10/325mg tab PO PRN ×3 (02:39→18:38)
[2018-11-06 06:00] VITALS: BP 105/81
--- NOTE | 2018-11-06 06:34 | NUR ---
Problems reprioritized. Patient report given, questions answered & plan of care reviewed with JAMES Castro. Patient stable at discharge.
--- NOTE | 2018-11-06 06:56 | NUR ---
Patient in room PCU 3022. I have received report from Reese RAMIREZ and had the opportunity to ask questions and assume patient care.
--- NOTE | 2018-11-06 06:58 | NUR ---
Patient in room PCU 3022. I have received report from Reese RAMIREZ and had the opportunity to ask questions and assume patient care.
[2018-11-06 07:13] LABS: BASOPHILS % (AUTO) 0.8 % (0-1); EOSINOPHILS # (AUTO) 0.1 X10'3 (0-0.9); EOSINOPHILS % (AUTO) 2.1 % (0-6); HEMATOCRIT 38.4 % (35.0-45.0); HEMOGLOBIN 12.1 g/dl (12.0-16.0); LYMPHOCYTES % (AUTO) 22.6 % (21-51); MEAN CORPUSCULAR HEMOGLOBIN 27.4 PG (27.0-31.0); MEAN CORPUSCULAR HGB CONC 31.6 g/dL (33.0-36.5); MEAN CORPUSCULAR VOLUME 86.7 FL (78-98); MEAN PLATELET VOLUME 8.5 FL (7.4-10.4); MONOCYTES # (AUTO) 0.5 X10'3 (0-0.9); MONOCYTES % (AUTO) 11.4 % (2-12); NEUTROPHILS # (AUTO) 2.7 X10'3 (1.8-7.7); NEUTROPHILS % (AUTO) 63.1 % (42-75); PLATELET COUNT 139 X10'3 (140-440); RED BLOOD COUNT 4.43 X10'6 (4.20-5.60); RED CELL DISTRIBUTION WIDTH 16.9 % (11.5-14.5); WHITE BLOOD COUNT 4.2 X10'3 (4.5-11.0)
[2018-11-06 07:16] LABS: ALBUMIN 3.7 G/DL (3.4-5.0); ANION GAP 6 (8-16); BLOOD UREA NITROGEN 28 MG/DL (7-18); CALCIUM 8.8 MG/DL (8.5-10.1); CHLORIDE 100 MMOL/L (99-107); CREATININE 1.27 MG/DL (0.40-0.90); GLUCOSE 94 MG/DL (70-104); MAGNESIUM 1.7 MG/DL (1.5-2.4); POTASSIUM 3.9 MMOL/L (3.5-5.1); SODIUM 145 MMOL/L (135-145); TOTAL CARBON DIOXIDE 39.1 MMOL/L (24-32); eGFR 42 ML/MIN
[2018-11-06] MEDS: K and/or MAG REPLACEMENT MC SCH (08:00)
[2018-11-06] MEDS: carVEDilol 12.5mg tablet PO SCH ×2 (08:13→20:44)
[2018-11-06] MEDS: furosemide 40mg/4ml inj IV SCH ×2 (08:13→20:44)
[2018-11-06 11:00] VITALS: BP 101/73
[2018-11-06] MEDS: cephalexin 500mg capsule PO SCH ×2 (13:14→20:42)
[2018-11-06 15:00] VITALS: BP 102/76
--- NOTE | 2018-11-06 16:37 | NUR ---
paged hospitalist [phone] can some nystatin powder be ordered for redness under Panus will continue to monitor
[2018-11-06] MEDS: nitroGLYCERIN 0.4mg/hour patch TD SCH (17:04)
[2018-11-06 18:00] VITALS: BP 109/83
--- NOTE | 2018-11-06 18:15 | NUR ---
Patient in room PCU 3022. I have received report from JAMES Castro and had the opportunity to ask questions and assume patient care. Pt is alert and oriented X4, denies CP, dizziness, and SOB. Will continue to monitor.
--- NOTE | 2018-11-06 18:24 | NUR ---
Problems reprioritized. Patient report given, questions answered & plan of care reviewed with Jenny RAMIREZ.
--- NOTE | 2018-11-06 19:22 | NUR ---
I called Dr. Carrasquillo to inform her that patient had an episode of V-Tach (90's). Dr Carrasquillo stated that she will called me back. Patient is alert and oriented X4, denies CP, SOB, dizziness, n/v. Her VS are: BP 109/83, HR 66, SpO2 95 in 2L of oxygen via NC. Will continue to monitor
--- NOTE | 2018-11-06 19:30 | NUR ---
Dr Carrasquillo called me back and asked me to "keep an eye on it". Per Mamadou, door technician, patient hadn't had any other episodes of V-tach so far. Will continue to monitor
[2018-11-06] MEDS: sacubitril/valsartan 24mg-26mg tablet PO SCH ×2 (20:00→20:42)
--- NOTE | 2018-11-06 21:34 | NUR ---
Patient refused to take Entresto 24mg-26-mg tablet (sacubitril/valsartan). Patient states that did not inform her about this new medication. I read and explained to patient what the medication is for and the side effects. She is currently taken Coreg tablet (Carvedilol 12.5 mg tablet). Her VS before taken the Coreg were as follow: BP: 112/83; HR: 88. Explained situation to game breeding farm manager, Imer, and will informed Dr. Carrasquillo and the day RN when I give report tomorrow morning
[2018-11-06 22:00] VITALS: BP 113/80
--- NOTE | 2018-11-06 23:43 | NUR ---
Received phone call from Dr. Carrasquillo and informed her that patient refused the Entrest 24mg-26mg (sacubitril/valsartan).
[2018-11-07 02:00] VITALS: BP 168/69
[2018-11-07] MEDS: cephalexin 500mg capsule PO SCH (02:00)
[2018-11-07] MEDS: HYDROcodone/acetaminophen 10/325mg tab PO PRN ×3 (05:54→23:40)
[2018-11-07 06:00] VITALS: BP 130/82
--- NOTE | 2018-11-07 06:20 | NUR ---
Patient in room PCU 3022. I have received report from JAMES Leigh and had the opportunity to ask questions and assume patient care.
[2018-11-07 06:39] LABS: BASOPHILS % (AUTO) 0.7 % (0-1); EOSINOPHILS # (AUTO) 0.1 X10'3 (0-0.9); EOSINOPHILS % (AUTO) 1.9 % (0-6); HEMATOCRIT 37.7 % (35.0-45.0); LYMPHOCYTES # (AUTO) 1.1 X10'3 (1.1-4.8); LYMPHOCYTES % (AUTO) 24.5 % (21-51); MEAN CORPUSCULAR HEMOGLOBIN 27.2 PG (27.0-31.0); MEAN CORPUSCULAR HGB CONC 31.8 g/dL (33.0-36.5); MEAN CORPUSCULAR VOLUME 85.5 FL (78-98); MEAN PLATELET VOLUME 8.4 FL (7.4-10.4); MONOCYTES # (AUTO) 0.5 X10'3 (0-0.9); NEUTROPHILS # (AUTO) 2.7 X10'3 (1.8-7.7); NEUTROPHILS % (AUTO) 61.9 % (42-75); PLATELET COUNT 128 X10'3 (140-440); RED BLOOD COUNT 4.41 X10'6 (4.20-5.60); RED CELL DISTRIBUTION WIDTH 16.5 % (11.5-14.5); WHITE BLOOD COUNT 4.4 X10'3 (4.5-11.0)
--- NOTE | 2018-11-07 06:55 | NUR ---
Problems reprioritized. Patient report given, questions answered & plan of care reviewed with JAMES Rodney. Patient stable at shift change.
[2018-11-07] MEDS: sacubitril/valsartan 24mg-26mg tablet PO SCH ×2 (08:00→20:17)
[2018-11-07] MEDS: K and/or MAG REPLACEMENT MC SCH (08:00)
[2018-11-07 08:01] LABS: ALBUMIN 3.7 G/DL (3.4-5.0); ANION GAP 7 (8-16); BLOOD UREA NITROGEN 30 MG/DL (7-18); BUN/CREATININE RATIO 22.9 (6.6-38.0); CALCIUM 8.8 MG/DL (8.5-10.1); CHLORIDE 100 MMOL/L (99-107); CREATININE 1.31 MG/DL (0.40-0.90); GLUCOSE 89 MG/DL (70-104); MAGNESIUM 1.8 MG/DL (1.5-2.4); POTASSIUM 3.8 MMOL/L (3.5-5.1); SODIUM 143 MMOL/L (135-145); TOTAL CARBON DIOXIDE 36.4 MMOL/L (24-32); eGFR 40 ML/MIN
[2018-11-07] MEDS: sulfamethoxazole/trimethoprim DS (800/160mg) tablet PO SCH ×2 (08:23→20:17)
[2018-11-07] MEDS: furosemide 40mg/4ml inj IV SCH ×2 (08:23→20:18)
[2018-11-07] MEDS: carVEDilol 12.5mg tablet PO SCH ×2 (08:23→20:17)
[2018-11-07 11:00] VITALS: BP 107/81
--- NOTE | 2018-11-07 12:21 | NUR ---
Initial: Pt admit w/ acute on chronic CHF/COPD and respiratory failure. Hx lung CA and smoking. LLE skin tear w/ cellulitis per MD note. Pt PO 75-100% heart healthy meals meeting needs. [facility] 11/05. Will continue to monitor. Rec: 1. continue heart healthy diet 2. monitor for ONS needs if PO declines 3. wt per rx Addendum: 11/07/18 at [address] Amended: Links added.
[2018-11-07 15:00] VITALS: BP 125/90
[2018-11-07] MEDS: nitroGLYCERIN 0.4mg/hour patch TD SCH (16:46)
--- NOTE | 2018-11-07 18:17 | NUR ---
Problems reprioritized. Patient report given, questions answered & plan of care reviewed with JAMES Stoddard.
--- NOTE | 2018-11-07 18:27 | NUR ---
Patient in room PCU 3022. I have received report from Ronel RAMIREZ and had the opportunity to ask questions and assume patient care.
[2018-11-07 19:00] VITALS: BP 119/83
[2018-11-07 22:00] VITALS: BP 132/85
[2018-11-08 02:00] VITALS: BP 93/57
[2018-11-08 05:17] LABS: BASOPHILS % (AUTO) 0.5 % (0-1); EOSINOPHILS # (AUTO) 0.1 X10'3 (0-0.9); EOSINOPHILS % (AUTO) 2.3 % (0-6); HEMATOCRIT 36.2 % (35.0-45.0); HEMOGLOBIN 11.5 g/dl (12.0-16.0); LYMPHOCYTES # (AUTO) 0.9 X10'3 (1.1-4.8); LYMPHOCYTES % (AUTO) 24.1 % (21-51); MEAN CORPUSCULAR HEMOGLOBIN 27.4 PG (27.0-31.0); MEAN CORPUSCULAR HGB CONC 31.6 g/dL (33.0-36.5); MEAN CORPUSCULAR VOLUME 86.6 FL (78-98); MEAN PLATELET VOLUME 8.1 FL (7.4-10.4); MONOCYTES # (AUTO) 0.4 X10'3 (0-0.9); NEUTROPHILS # (AUTO) 2.2 X10'3 (1.8-7.7); NEUTROPHILS % (AUTO) 62.1 % (42-75); PLATELET COUNT 117 X10'3 (140-440); RED BLOOD COUNT 4.18 X10'6 (4.20-5.60); RED CELL DISTRIBUTION WIDTH 16.4 % (11.5-14.5); WHITE BLOOD COUNT 3.5 X10'3 (4.5-11.0)
[2018-11-08 05:23] LABS: ALBUMIN 3.5 G/DL (3.4-5.0); ANION GAP 4 (8-16); BLOOD UREA NITROGEN 28 MG/DL (7-18); BUN/CREATININE RATIO 22.6 (6.6-38.0); CALCIUM 8.4 MG/DL (8.5-10.1); CHLORIDE 100 MMOL/L (99-107); CREATININE 1.24 MG/DL (0.40-0.90); GLUCOSE 95 MG/DL (70-104); MAGNESIUM 1.7 MG/DL (1.5-2.4); POTASSIUM 3.6 MMOL/L (3.5-5.1); SODIUM 143 MMOL/L (135-145); TOTAL CARBON DIOXIDE 39.5 MMOL/L (24-32); eGFR 43 ML/MIN
--- NOTE | 2018-11-08 05:47 | NUR ---
[place] documentation: I have reviewed and agree with all interventions, assessments performed and documented by Lisset RAMIREZ. [place] Medication Administration: For this medication-pass time frame, all medication were reviewed, dispensed, administered and documented per hospital policy by Lisset RAMIREZ.
[2018-11-08 06:00] VITALS: BP 99/70
--- NOTE | 2018-11-08 06:12 | NUR ---
Problems reprioritized. Patient report given, questions answered & plan of care reviewed with Ronel RAMIREZ.
--- NOTE | 2018-11-08 06:15 | NUR ---
Patient in room PCU 3022. I have received report from JAMES Stoddard and had the opportunity to ask questions and assume patient care.
[2018-11-08] MEDS: K and/or MAG REPLACEMENT MC SCH (08:00)
[2018-11-08] MEDS: furosemide 40mg/4ml inj IV SCH (08:30)
[2018-11-08] MEDS: carVEDilol 12.5mg tablet PO SCH (08:30)
[2018-11-08] MEDS: sulfamethoxazole/trimethoprim DS (800/160mg) tablet PO SCH (08:30)
[2018-11-08] MEDS: sacubitril/valsartan 24mg-26mg tablet PO SCH (08:30)
[2018-11-08] MEDS: HYDROcodone/acetaminophen 10/325mg tab PO PRN (10:53)
[2018-11-08 11:00] VITALS: BP 97/70
--- NOTE | 2018-11-08 13:30 | NUR ---
Patient is transferred to rehab per medical transport via wheelchair. All belongs with patient, report called to facility.
== END 2018-11-08 13:38 | DRG 291 ==
LOC: ER 16:54 → CANBEDREQ 21:17 → PCU 3S 21:28
PROVIDERS: ADMIT Hospitalist; ATTEND Internal Medicine
PROC: 0W9B3ZX Drainage of Left Pleural Cavity, Percutaneous Approach, Diagnostic (ICD-10-PCS; principal; 2018-11-04)
DX: I13.0 Hypertensive heart and chronic kidney disease with heart failure and stage 1 through stage 4 chronic kidney disease, or unspecified chronic kidney disease (principal); I50.23 Acute on chronic systolic (congestive) heart failure; J96.21 Acute and chronic respiratory failure with hypoxia; Z68.42 Body mass index [BMI] 45.0-49.9, adult; J91.8 Pleural effusion in other conditions classified elsewhere; L03.116 Cellulitis of left lower limb; I48.0 Paroxysmal atrial fibrillation; J44.9 Chronic obstructive pulmonary disease, unspecified; Z96.653 Presence of artificial knee joint, bilateral; K44.9 Diaphragmatic hernia without obstruction or gangrene; Z60.2 Problems related to living alone; E66.01 Morbid (severe) obesity due to excess calories; B95.7 Other staphylococcus as the cause of diseases classified elsewhere; S81.802A Unspecified open wound, left lower leg, initial encounter; X58.XXXA Exposure to other specified factors, initial encounter; F12.90 Cannabis use, unspecified, uncomplicated; K59.00 Constipation, unspecified; N18.3 Chronic kidney disease, stage 3 (moderate); Z79.899 Other long term (current) drug therapy; Z85.118 Personal history of other malignant neoplasm of bronchus and lung; Z86.14 Personal history of Methicillin resistant Staphylococcus aureus infection; Z87.891 Personal history of nicotine dependence; Z90.710 Acquired absence of both cervix and uterus; Z99.81 Dependence on supplemental oxygen; Z87.440 Personal history of urinary (tract) infections; Z88.8 Allergy status to other drugs, medicaments and biological substances; Z90.2 Acquired absence of lung [part of]; Y93.89 Activity, other specified; Y92.89 Other specified places as the place of occurrence of the external cause; Y99.8 Other external cause status
CPT/HCPCS: 32555; 36415; 71045; 71250; 74176; 80048; 80053; 82945; 83615; 83735; 83880; 83986; 84155; 84157; 84484; 85025; 85610; 87070; 87077; 87081; 87186; 89051; 93005; 94760; 96374; 96375; 97110; 97112; 97116; 97161; 97530; 99285; G0378; J1940; J3490

== ENCOUNTER 2019-03-04 06:55 | Day surgery (SDC) | payer MEDICARE, MEDICAID ==
[~2019-03-04] VITALS: Ht 182.9 cm; Wt 117.6 kg
[~2019-03-04 06:55] MED LIST changes: -LISI10TA4 PO; +SACU1TAB PO
--- NOTE | 2019-03-04 07:35 | NUR ---
Called RAJ Schaffer, as patient is taking pradaxa for her afib, and did not stop taking it prior to thoracentesis. Rj stated to cancel the thora, reschedule for thursday or and to hold the pradaxa for 2 days prior. Telephone orders verified. Patient was notified. Calling juliane for [facility] pickup [facility].
[2019-03-04 07:46] VITALS: BP 135/93
== END 2019-03-04 09:05 | disposition home or self-care (01) ==
LOC: SSTAY O 06:55
PROVIDERS: ATTEND Radiology Diagnostic Radiology
DX: J90 Pleural effusion, not elsewhere classified (principal); Z53.8 Procedure and treatment not carried out for other reasons; G89.4 Chronic pain syndrome; J44.1 Chronic obstructive pulmonary disease with (acute) exacerbation; I48.0 Paroxysmal atrial fibrillation; I50.23 Acute on chronic systolic (congestive) heart failure; Z96.653 Presence of artificial knee joint, bilateral; Z86.19 Personal history of other infectious and parasitic diseases

== ENCOUNTER 2019-03-08 06:29 | Day surgery (SDC) | payer MEDICARE, MEDICAID ==
[~2019-03-08] VITALS: Ht 182.9 cm; Wt 114.5 kg
[2019-03-08 06:48] VITALS: BP 159/101
[2019-03-08] MEDS ORDERED: CARV-50 PO (07:13)
[2019-03-08] MEDS ORDERED: POTA-82 PO (07:13)
--- NOTE | 2019-03-08 09:18 | NUR ---
pt procedure cancelled. RAJ Mccann at bedside, see dictated note.
== END 2019-03-08 08:55 | disposition home or self-care (01) ==
LOC: SSTAY O 06:29
PROVIDERS: ATTEND Radiology Diagnostic Radiology
DX: J90 Pleural effusion, not elsewhere classified (principal)
CPT/HCPCS: 76604

== ENCOUNTER 2019-03-25 15:02 | Emergency (ER) | payer MEDICARE, MEDICAID ==
[~2019-03-25] VITALS: Ht 182.9 cm; Wt 112.3 kg
[~2019-03-25 15:02] MED LIST changes: +POTA-82 PO; -POTA20TA10 PO
[2019-03-25 17:04] LABS: ALANINE AMINOTRANSFERASE 11 U/L (12-78); ALBUMIN 3.4 G/DL (3.4-5.0); ALBUMIN/GLOBULIN RATIO 0.9 (1.1-1.5); ALKALINE PHOSPHATASE 47 IU/L (46-116); ANION GAP 3 (8-16); ASPARTATE AMINO TRANSFERASE 18 U/L (10-37); BILIRUBIN,TOTAL 0.8 MG/DL (0.1-1.0); BLOOD UREA NITROGEN 16 MG/DL (7-18); BUN/CREATININE RATIO 16.8 (6.6-38.0); CALCIUM 9.1 MG/DL (8.5-10.1); CHLORIDE 99 MMOL/L (99-107); CREATININE 0.95 MG/DL (0.40-0.90); GLUCOSE 97 MG/DL (70-104); POTASSIUM 3.5 MMOL/L (3.5-5.1); SODIUM 141 MMOL/L (135-145); TOTAL CARBON DIOXIDE 38.6 MMOL/L (24-32); TOTAL PROTEIN 7.2 G/DL (6.4-8.2); eGFR 58 ML/MIN
[2019-03-25 18:40] LABS: BASOPHILS # (AUTO) 0.1 X10'3 (0-0.2); BASOPHILS % (AUTO) 0.9 % (0-1); EOSINOPHILS # (AUTO) 0.1 X10'3 (0-0.9); EOSINOPHILS % (AUTO) 1.4 % (0-6); HEMATOCRIT 34.4 % (35.0-45.0); LYMPHOCYTES # (AUTO) 1.7 X10'3 (1.1-4.8); MEAN CORPUSCULAR HEMOGLOBIN 28.2 PG (27.0-31.0); MEAN PLATELET VOLUME 8.1 FL (7.4-10.4); MONOCYTES # (AUTO) 0.7 X10'3 (0-0.9); MONOCYTES % (AUTO) 8.6 % (2-12); NEUTROPHILS # (AUTO) 5.4 X10'3 (1.8-7.7); NEUTROPHILS % (AUTO) 68.1 % (42-75); PLATELET COUNT 185 X10'3 (140-440); RED BLOOD COUNT 3.91 X10'6 (4.20-5.60); RED CELL DISTRIBUTION WIDTH 17.7 % (11.5-14.5); WHITE BLOOD COUNT 7.9 X10'3 (4.5-11.0)
[2019-03-25] MEDS ORDERED: HYDROcodone/acetaminophen 10/325mg tab PO ONE (19:05)
[2019-03-25 19:32] VITALS: BP 113/76
== END 2019-03-25 19:35 | disposition home or self-care (01) ==
LOC: ER 15:02
DX: M25.561 Pain in right knee (principal); G89.29 Other chronic pain; I48.91 Unspecified atrial fibrillation; I50.9 Heart failure, unspecified; I11.0 Hypertensive heart disease with heart failure; J44.9 Chronic obstructive pulmonary disease, unspecified; F12.90 Cannabis use, unspecified, uncomplicated; Z86.69 Personal history of other diseases of the nervous system and sense organs; Z85.118 Personal history of other malignant neoplasm of bronchus and lung; Z90.710 Acquired absence of both cervix and uterus; Z98.890 Other specified postprocedural states; Z96.651 Presence of right artificial knee joint; Z79.899 Other long term (current) drug therapy
CPT/HCPCS: 36415; 80053; 85025; 99283

== ENCOUNTER 2019-10-27 19:52 | Emergency (ER) | payer MEDICARE, MEDICAID ==
[~2019-10-27] VITALS: Ht 182.9 cm; Wt 115.9 kg
[~2019-10-27 19:52] MED LIST changes: +AMOX-580 PO; +SPIR25TA PO
[2019-10-27 22:18] LABS: BASOPHILS % (AUTO) 0.2 % (0-1); EOSINOPHILS % (AUTO) 0.2 % (0-6); HEMATOCRIT 38.6 % (35.0-45.0); LYMPHOCYTES # (AUTO) 0.9 X10'3 (1.1-4.8); LYMPHOCYTES % (AUTO) 9.2 % (21-51); MEAN CORPUSCULAR HEMOGLOBIN 26.5 PG (27.0-31.0); MEAN CORPUSCULAR VOLUME 85.2 FL (78-98); MEAN PLATELET VOLUME 7.5 FL (7.4-10.4); MONOCYTES # (AUTO) 0.4 X10'3 (0-0.9); MONOCYTES % (AUTO) 3.7 % (2-12); NEUTROPHILS # (AUTO) 8.1 X10'3 (1.8-7.7); NEUTROPHILS % (AUTO) 86.7 % (42-75); PLATELET COUNT 172 X10'3 (140-440); RED BLOOD COUNT 4.53 X10'6 (4.20-5.60); RED CELL DISTRIBUTION WIDTH 18.3 % (11.5-14.5); WHITE BLOOD COUNT 9.4 X10'3 (4.5-11.0)
[2019-10-27] MEDS ORDERED: morphine 4 MG/ML inj SYRINge IV ONE (22:30)
[2019-10-27 22:34] LABS: ALANINE AMINOTRANSFERASE 18 U/L (12-78); ALBUMIN 3.6 G/DL (3.4-5.0); ALKALINE PHOSPHATASE 39 IU/L (46-116); ANION GAP 5 (8-16); ASPARTATE AMINO TRANSFERASE 17 U/L (10-37); BILIRUBIN,TOTAL 0.8 MG/DL (0.1-1.0); BLOOD UREA NITROGEN 29 MG/DL (7-18); BUN/CREATININE RATIO 28.4 (6.6-38.0); C-REACTIVE PROTEIN 3.51 MG/DL (0.0-0.5); CALCIUM 8.7 MG/DL (8.5-10.1); CHLORIDE 102 MMOL/L (99-107); CREATININE 1.02 MG/DL (0.40-0.90); GLUCOSE 119 MG/DL (70-104); MAGNESIUM 1.9 MG/DL (1.5-2.4); POTASSIUM 3.8 MMOL/L (3.5-5.1); SODIUM 143 MMOL/L (135-145); TOTAL CARBON DIOXIDE 35.7 MMOL/L (24-32); TOTAL PROTEIN 7.3 G/DL (6.4-8.2); eGFR 53 ML/MIN
[2019-10-27 22:48] LABS: CLARITY,URINE SLIGHTLY CLOUDY (Clear); COLOR,URINE YELLOW (Yellow); GLUCOSE, URINE NEGATIVE (Neg); KETONES,URINE NEGATIVE (Neg); LEUKOCYTE ESTERASE ,URINE TRACE (Neg); NITRITES, URINE POSITIVE (Neg); OCCULT BLOOD,URINE LARGE (Neg); PROTEIN,URINE 30 mg/dl (Neg); UA COLLECTION TYPE STRAIGHT CATH; UROBILINOGEN,URINE 0.2 E.U/dL (0.2-1.0)
[2019-10-27 22:53] LABS: BACTERIA,URINE 4+ /HPF (Neg); RBC,URINE 0-2 /HPF (0-2); SQUAMOUS EPITHELIAL CELL,UR FEW /LPF (FEW); WBC,URINE 0-4 /HPF (0-4)
[2019-10-28] MEDS ORDERED: piperacillin/tazo 3.375gm/50ml 50 ML IV ONE
[2019-10-28] MEDS ORDERED: AMOX-117 PO (01:07)
[2019-10-28 02:00] VITALS: BP 105/88
== END 2019-10-28 02:02 | disposition home or self-care (01) ==
LOC: ER 19:52
DX: L03.115 Cellulitis of right lower limb (principal); I50.9 Heart failure, unspecified; M25.562 Pain in left knee; I48.91 Unspecified atrial fibrillation; I11.0 Hypertensive heart disease with heart failure; J44.9 Chronic obstructive pulmonary disease, unspecified; F12.90 Cannabis use, unspecified, uncomplicated; Z86.69 Personal history of other diseases of the nervous system and sense organs; Z90.710 Acquired absence of both cervix and uterus; Z98.890 Other specified postprocedural states; Z72.89 Other problems related to lifestyle; Z79.899 Other long term (current) drug therapy
CPT/HCPCS: 36415; 71045; 73560; 80053; 81001; 83605; 83735; 83880; 84145; 85025; 85651; 86140; 87040; 87077; 87088; 87186; 93005; 96365; 96375; 99285; J2270; J2543